=== PATIENT | female | born 1955 | race African-American/Black ===

== ENCOUNTER → 2018-04-28 | Outpatient (CLI) | payer OTHER ==
[~2018-04-28] MED LIST: RT-ALBUTEROL SULF 2.5 MG/3 ML PRE-MIX VIAL INH ONE; RT-ALBUTEROL SULF 2.5 MG/3 ML PRE-MIX VIAL ONE
== END ==
LOC: RT 13:22
PROVIDERS: ATTEND Neuromusculoskeletal Medicine, Sports Medicine
DX: Z02.71 Encounter for disability determination (principal)
CPT/HCPCS: 94060

== ENCOUNTER 2020-01-30 14:48 | Emergency (ER) | payer MEDICAID, OTHER ==
[~2020-01-30] VITALS: Ht 162.6 cm; Wt 142.8 kg
--- NOTE | 2020-01-30 14:54 | ED Cough/URI ---
General Chief Complaint: Coughing Up Blood Stated Complaint: SOB - PT HAS COPD History of Present Illness Date Seen by Provider: Jan 30, 2020 Time Seen by Provider: 14:54 Initial Comments 65-year-old female presents with cough, shortness of breath and wheezy. Patient has a history of COPD. She reports she has COPD because she "continues to smoke" patient has green sputum with increasing cough. She has no fevers or chills. She reports the symptoms started worsening about 4 days ago. She has a little bit of reddish tinged occasionally to her sputum but no gross bleeding. Patient denies any chest pain. Patient reports she has inhalers that she uses about every 6-8 hours. She denies any nausea vomiting or other systemic complaints Allergies and Home Medications Allergies Coded Allergies: No Known Drug Allergies (Unverified , 04/28/18) Home Medications Azithromycin 250 Mg Tablet, 250 MG PO UD TAKE 2 TABLETS ON DAY ONE THEN TAKE 1 TABLET DAILY FOR FOUR MORE DAYS Prescribed by: AVERY MERCEDES on 01/30/20 1603 Prednisone 20 Mg Tab, 40 MG PO DAILY Prescribed by: AVERY MERCEDES on 01/30/20 1603 Patient Home Medication List Home Medication List Reviewed: Yes Review of Systems Review of Systems Constitutional: No chills, No fever, No malaise Respiratory: cough, short of breath, wheezing Cardiovascular: No chest pain, No palpitations Gastrointestinal: No abdominal pain, No nausea, No vomiting Genitourinary: no symptoms reported Musculoskeletal: no symptoms reported Skin: no symptoms reported Psychiatric/Neurological: No Symptoms Reported Hematologic/Lymphatic: No Symptoms Reported Past Zmmefln-Gdebff-Pilkpj Hx Past Med/Social Hx: Reviewed Nursing Past Med/Soc Hx Physical Exam Vital Signs - First Documented 01/30/20 14:51 Temp 36.3 Pulse 111 Resp 24 B/P (MAP) 157/93 (114) Pulse Ox 91 O2 Delivery Room Air Capillary Refill : Height: '" Weight: lbs. oz. kg; BMI Method: General Appearance: no apparent distress Neck: full range of motion Respiratory: no respiratory distress, decreased breath sounds (mild diffuse); No accessory muscle use Cardiovascular: normal peripheral pulses, regular rate, rhythm Gastrointestinal: non tender, soft Extremities: normal range of motion, non-tender Neurologic/Psychiatric: alert, normal mood/affect, oriented x 3 Skin: normal color, warm/dry Progress/Results/Core Measures Suspected Sepsis SIRS Temperature: Pulse: Respiratory Rate: Laboratory Tests 01/30/20 15:15: White Blood Count 6.4 Blood Pressure / Mean: Laboratory Tests 01/30/20 15:15: Creatinine 0.57L, Platelet Count 349 Results/Orders Lab Results Laboratory Tests Test 01/30/20 15:15 Range/Units White Blood Count 6.4 4.3-11.0 10^3/uL Red Blood Count 4.46 4.35-5.85 10^6/uL Hemoglobin 14.9 11.5-16.0 G/DL Hematocrit 44 35-52 % Mean Corpuscular Volume 98 80-99 FL Mean Corpuscular Hemoglobin 33 25-34 PG Mean Corpuscular Hemoglobin Concent 34 32-36 G/DL Red Cell Distribution Width 12.7 10.0-14.5 % Platelet Count 349 130-400 10^3/uL Mean Platelet Volume 8.5 7.4-10.4 FL Sodium Level 138 135-145 MMOL/L Potassium Level 3.3 L 3.6-5.0 MMOL/L Chloride Level 97 L 98-107 MMOL/L Carbon Dioxide Level 28 21-32 MMOL/L Anion Gap 13 5-14 MMOL/L Blood Urea Nitrogen 8 7-18 MG/DL Creatinine 0.57 L 0.60-1.30 MG/DL Estimat Glomerular Filtration Rate > 60 BUN/Creatinine Ratio 14 Glucose Level 112 H 70-105 MG/DL Calcium Level 9.8 8.5-10.1 MG/DL My Orders Orders - MERCEDES,AVERY L DO Albuterol/Ipra Inhalation Soln (Duoneb I (01/30/20 15:00) Methylprednisolone Sod Succ (Solu-Medrol (01/30/20 14:57) Svn Small Volume Nebulizer (01/30/20 14:57) Chest Pa/Lat (2 View) (01/30/20 14:57) Basic Metabolic Panel (01/30/20 14:57) Cbc No Diff (01/30/20 14:57) Magnesium 1 Gm/100 Ml Ivpb (Magnesium Barajas (01/30/20 15:00) Ed Iv/Invasive Line Start (01/30/20 15:19) Albuterol/Ipra Inhalation Soln (Duoneb I (01/30/20 16:15) Svn Small Volume Nebulizer (01/30/20 16:04) Medications Given in ED Current Medications Medications Dose Ordered Sig/Marium Route Start Time Stop Time Status Last Admin Dose Admin Albuterol/ Ipratropium 3 ml ONCE ONCE INH 01/30/20 15:00 01/30/20 15:01 DC 01/30/20 15:18 3 ML Albuterol/ Ipratropium 3 ml ONCE ONCE INH 01/30/20 16:15 01/30/20 16:16 DC 01/30/20 16:08 3 ML Vital Signs/I&O 01/30/20 01/30/20 14:51 15:00 Temp 36.3 Pulse 111 Resp 24 B/P (MAP) 157/93 (114) Pulse Ox 91 O2 Delivery Room Air Room Air Capillary Refill : Progress Note : Time: 15:58 Progress Note Patient reports she is feeling 100% better following treatment. She is ready be discharged home. Patient with a COPD exacerbation. I will discharge her with some prednisone and azithromycin. She is discharged home in stable condition. Patient normally wears 2 L oxygen at home. Here on room air she was running approximate 92-95% Diagnostic Imaging Diagonstic Imaging: Xray Comments [facility], [place] NAME: CAREN LEE MED REC#: [id number] PT STATUS: REG ER : 1955 PHYSICIAN: AVERY MERCEDES DO ADMIT DATE: 01/30/20/ER FS Signed Date of Exam:01/30/20 CHEST PA/LAT (2 VIEW) HISTORY: Cough 1 week with sputum production. Shortness of breath. COMPARISON: None. TECHNIQUE: Two views of the chest. FINDINGS: There are multifocal airspace opacities, most in the peripheral upper lobes. No pleural effusion or pneumothorax is seen. The cardiac silhouette is normal in size. There are degenerative changes in the shoulders and spine. IMPRESSION: Airspace opacities in the upper lobes concerning for pneumonia. Reviewed: Reviewed by Me, Reviewed/Discussed Departure Impression Primary Impression: COPD with acute exacerbation Disposition: HOME, SELF-CARE Condition: Stable Departure-Patient Inst. Referrals: NO,LOCAL PHYSICIAN (PCP/Family) Primary Care Physician Patient Instructions: Exacerbation of COPD, Risk Factors for COPD Add. Discharge Instructions: Follow-up with your primary care provider in 3-4 days for recheck in today symptoms All discharge instructions reviewed with patient and/or family. Voiced understanding. Scripts Prednisone (Prednisone) 20 Mg Tab 40 MG PO DAILY, #6 TAB 0 Refills Prov: AVERY MERCEDES DO 01/30/20 Azithromycin (Azithromycin) 250 Mg Tablet 250 MG PO UD, #6 TAB TAKE 2 TABLETS ON DAY ONE THEN TAKE 1 TABLET DAILY FOR FOUR MORE DAYS Prov: AVERY MERCEDES DO 01/30/20 AVERY MERCEDES DO Jan 30, 2020 14:54
[2020-01-30] MEDS ORDERED: methylPREDNISolone 125 MG (Solu-MEDROL) VIAL IV STA (14:57)
[2020-01-30] MEDS ORDERED: RT-ALBUTEROL/IPRATROPIUM 3 ML (DUONEB) VIAL INH ONE ×2 (15:00→16:15)
[2020-01-30] MEDS: MAGNESIUM 1 GM/100 ML IVPB 100 ML IV SCH ×2 (15:18→16:08)
[2020-01-30 15:26] LABS: HEMOGLOBIN 14.9 G/DL (11.5-16.0); MEAN PLATELET VOLUME 8.5 FL (7.4-10.4); RED CELL DISTRIBUTION WIDTH 12.7 % (10.0-14.5); WHITE BLOOD COUNT 6.4 10^3/uL (4.3-11.0)
[2020-01-30 15:41] LABS: CARBON DIOXIDE 28 MMOL/L (21-32); CHLORIDE 97 MMOL/L (98-107); POTASSIUM 3.3 MMOL/L (3.6-5.0); SODIUM 138 MMOL/L (135-145)
[2020-01-30 15:42] LABS: BUN/CREATININE RATIO 14; CALCIUM 9.8 MG/DL (8.5-10.1); CREATININE SERUM 0.57 MG/DL (0.60-1.30); GFR ESTIMATED > 60; GLUCOSE 112 MG/DL (70-105)
--- NOTE | 2020-01-30 16:02 | Diagnostic Imaging Report ---
HISTORY: Cough 1 week with sputum production. Shortness of breath. COMPARISON: None. TECHNIQUE: Two views of the chest. FINDINGS: There are multifocal airspace opacities, most in the peripheral upper lobes. No pleural effusion or pneumothorax is seen. The cardiac silhouette is normal in size. There are degenerative changes in the shoulders and spine. IMPRESSION: Airspace opacities in the upper lobes concerning for pneumonia. Dictated by: Dictated on workstation # [id number]
[2020-01-30] MEDS ORDERED: AZIT250T12 PO (16:03)
[2020-01-30] MEDS ORDERED: PRD20T PO (16:03)
[2020-01-30 16:30] VITALS: BP 146/85
== END 2020-01-30 16:30 | disposition home or self-care (01) ==
LOC: EDUNIT# 14:48 → ER FS 14:50
DX: J44.1 Chronic obstructive pulmonary disease with (acute) exacerbation (principal); Z79.52 Long term (current) use of systemic steroids
CPT/HCPCS: 36415; 71046; 80048; 85027

== ENCOUNTER 2020-02-03 00:49 | Inpatient (IN) | payer MEDICAID ==
[2020-02-03] VITALS (30 sets, daily range): BP systolic 142–191; BP diastolic 68–129
[~2020-02-03] VITALS: Ht 162.6 cm; Wt 142.4 kg
[~2020-02-03 00:49] MED LIST changes: +AZIT250T12 PO; +PRD20T PO; -RT-ALBUTEROL SULF 2.5 MG/3 ML PRE-MIX VIAL INH ONE; -RT-ALBUTEROL SULF 2.5 MG/3 ML PRE-MIX VIAL ONE
--- NOTE | 2020-02-03 01:04 | ED Respiratory ---
General Chief Complaint: Respiratory Problems Stated Complaint: RESP DISTRESS Source: patient, EMS Exam Limitations: no limitations History of Present Illness Date Seen by Provider: Feb 03, 2020 Time Seen by Provider: 00:55 Initial Comments The patient is a morbidly obese 65-year-old female who presents via EMS for evaluation of shortness of breath. She has a known history of COPD and states that she was here in the emergency department on Saturday, 3 days ago, for the same complaint. She states that her symptoms are typical of her COPD exacerbations and she denies any fevers or chills. She states she lives with her son and that he has not had any fevers or chills. She is alert and oriented 4, calm, and appears to be in no distress. The patient is on 2L/min continuous nasal cannula oxygen at home and has been using her home nebulizer for breathing treatments with some relief. She denies chest pain, loss of taste or smell, abdominal or back pain, hemoptysis, palpitations, diaphoresis, nausea or vomiting, dizziness or syncope. When she was seen here over the weekend she was prescribed prednisone and azithromycin but states that they do not seem to be helping. The patient does continue to smoke cigarettes. Timing/Duration: other (4-5 days) Severity: moderate Modifying Factors: Improves With Albuterol Nebulizer (helps somewhat) Associated Symptoms: cough, shortness of breath, wheezing Allergies and Home Medications Allergies Coded Allergies: No Known Drug Allergies (Unverified , 04/28/18) Home Medications Azithromycin 250 Mg Tablet, 250 MG PO UD TAKE 2 TABLETS ON DAY ONE THEN TAKE 1 TABLET DAILY FOR FOUR MORE DAYS Prescribed by: AVERY MERCEDES on 01/30/20 1603 Prednisone 20 Mg Tab, 40 MG PO DAILY Prescribed by: AVERY MERCEDES on 01/30/20 1603 Patient Home Medication List Home Medication List Reviewed: Yes Review of Systems Review of Systems Constitutional: no symptoms reported EENTM: no symptoms reported Respiratory: cough, short of breath, wheezing Cardiovascular: no symptoms reported Gastrointestinal: no symptoms reported Genitourinary: no symptoms reported Musculoskeletal: no symptoms reported Skin: no symptoms reported Psychiatric/Neurological: No Symptoms Reported Hematologic/Lymphatic: No Symptoms Reported Immunological/Allergic: no symptoms reported All Other Systems Reviewed Negative Unless Noted: Yes Past Xyyxllz-Rwbgkm-Gexmri Hx Past Med/Social Hx: Reviewed Nursing Past Med/Soc Hx Patient Social History Alcohol Beverage of Choice: Whiskey Type Used: Cigarettes 2nd Hand Smoke Exposure: No Recent Foreign Travel: No Contact w/Someone Who Travel: No Recent Hopitalizations: No Seasonal Allergies Seasonal Allergies: No Past Medical History Surgeries: Yes Section, Gallbladder, Tonsillectomy, Tubal Ligation Respiratory: Yes COPD Cardiac: Yes Hypertension Neurological: No Genitourinary: No Gastrointestinal: No Musculoskeletal: No Endocrine: No HEENT: No Cancer: No Psychosocial: No Integumentary: No Physical Exam Vital Signs - First Documented 02/03/20 01:25 Temp 36.7 Pulse 77 Resp 20 B/P (MAP) 165/81 (109) Pulse Ox 93 O2 Delivery Nasal Cannula O2 Flow Rate 4.00 Capillary Refill : Height: '" Weight: lbs. oz. 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, alert, normal mood/affect, oriented x 3 Skin: normal color, warm/dry Focused Exam Lactate Level 02/03/20 01:10: Lactic Acid Level 1.08 Lactic Acid Level Laboratory Tests Test 02/03/20 01:10 Lactic Acid Level 1.08 MMOL/L (0.50-2.00) Progress/Results/Core Measures Suspected Sepsis SIRS Temperature: Pulse: Respiratory Rate: Laboratory Tests 02/03/20 01:00: White Blood Count 7.8 Blood Pressure / Mean: 02/03/20 01:10: Lactic Acid Level 1.08 Laboratory Tests 02/03/20 01:00: Creatinine 0.61, Platelet Count 339, Total Bilirubin 0.3 Results/Orders Lab Results Laboratory Tests Test 02/03/20 01:00 02/03/20 01:10 Range/Units White Blood Count 7.8 4.3-11.0 10^3/uL Red Blood Count 4.30 L 4.35-5.85 10^6/uL Hemoglobin 14.5 11.5-16.0 G/DL Hematocrit 44 35-52 % Mean Corpuscular Volume 102 H 80-99 FL Mean Corpuscular Hemoglobin 34 25-34 PG Mean Corpuscular Hemoglobin Concent 33 32-36 G/DL Red Cell Distribution Width 13.0 10.0-14.5 % Platelet Count 339 130-400 10^3/uL Mean Platelet Volume 8.6 7.4-10.4 FL Neutrophils (%) (Auto) 68 42-75 % Lymphocytes (%) (Auto) 25 12-44 % Monocytes (%) (Auto) 7 0-12 % Eosinophils (%) (Auto) 0 0-10 % Basophils (%) (Auto) 0 0-10 % Neutrophils # (Auto) 5.3 1.8-7.8 X 10^3 Lymphocytes # (Auto) 1.9 1.0-4.0 X 10^3 Monocytes # (Auto) 0.6 0.0-1.0 X 10^3 Eosinophils # (Auto) 0.0 0.0-0.3 10^3/uL Basophils # (Auto) 0.0 0.0-0.1 10^3/uL Sodium Level 139 135-145 MMOL/L Potassium Level 3.2 L 3.6-5.0 MMOL/L Chloride Level 97 L 98-107 MMOL/L Carbon Dioxide Level 36 H 21-32 MMOL/L Anion Gap 6 5-14 MMOL/L Blood Urea Nitrogen 18 7-18 MG/DL Creatinine 0.61 0.60-1.30 MG/DL Estimat Glomerular Filtration Rate > 60 BUN/Creatinine Ratio 30 Glucose Level 141 H 70-105 MG/DL Calcium Level 9.9 8.5-10.1 MG/DL Corrected Calcium 10.3 H 8.5-10.1 MG/DL Total Bilirubin 0.3 0.1-1.0 MG/DL Aspartate Amino Transf (AST/SGOT) 52 H 5-34 U/L Alanine Aminotransferase (ALT/SGPT) 35 0-55 U/L Alkaline Phosphatase 69 40-136 U/L Pro-B-Type Natriuretic Peptide 617.5 H <75.0 PG/ML Total Protein 6.5 6.4-8.2 GM/DL Albumin 3.5 3.2-4.5 GM/DL Blood Gas Puncture Site RT RADIAL Blood Gas Patient Temperature UNK Arterial Blood pH 7.31 *L 7.37-7.43 Arterial Blood Partial Pressure CO2 89 *H 35-45 MMHG Arterial Blood Partial Pressure O2 58 L 79-93 MMHG Arterial Blood HCO3 45 *H 23-27 MMOL/L Arterial Blood Total CO2 48.0 H 21.0-31.0 MMOL/L Arterial Blood Oxygen Saturation 87 L 94-100 % Arterial Blood Base Excess 14.6 H -2.5-2.5 MMOL/L Arnie Test YES-POS Blood Gas Ventilator Setting NO Blood Gas Inspired Oxygen 5 L Lactic Acid Level 1.08 0.50-2.00 MMOL/L My Orders Orders - PORTER IRVIN DO Arterial Blood Gas (02/03/20 00:50) Cbc With Automated Diff (02/03/20 00:50) Comprehensive Metabolic Panel (02/03/20 00:50) Blood Culture (02/03/20 00:50) Probnp Fs (02/03/20 00:50) Lactic Acid Analyzer (02/03/20 00:50) Income Auditor (02/03/20 00:50) Ekg Tracing (02/03/20 00:50) Chest 1 View Ap/Pa Only (02/03/20 00:57) Coronavirus Sars-Cov-2 So 2018 (02/03/20 01:04) Albuterol/Ipra Inhalation Soln (Duoneb I (02/03/20 01:15) Svn Small Volume Nebulizer (02/03/20 01:04) Methylprednisolone Sod Succ (Solu-Medrol (02/03/20 01:15) Bipap (Bilevel) Set Up (02/03/20 01:34) Potassium Chloride (Tablet) (K Dur Table (02/03/20 02:00) Medications Given in ED Current Medications Medications Dose Ordered Sig/Marium Route Start Time Stop Time Status Last Admin Dose Admin Albuterol/ Ipratropium 3 ml ONCE ONCE INH 02/03/20 01:15 02/03/20 01:16 DC 02/03/20 01:22 3 ML Methylprednisolone Sodium Succinate 125 mg ONCE ONCE IVP 02/03/20 01:15 02/03/20 01:16 DC 02/03/20 01:22 125 MG Vital Signs/I&O 02/03/20 02/03/20 01:25 01:47 Temp 36.7 Pulse 77 67 Resp 20 16 B/P (MAP) 165/81 (109) Pulse Ox 93 100 O2 Delivery Nasal Cannula O2 Flow Rate 4.00 100.00 Capillary Refill : Progress Note : Progress Note @0154 - patient updated on lab and imaging results. She is now on BiPAP. She is agreeable to admission. Dr. Hall excepts the admission at [facility] to the ICU and is agreeable to a pulmonology consultation. No indication for intubation at this time and given the compensated nature of the patient's ABG I suspect this will not be necessary during her admission. COVID test is pending. ECG Comment EKG@0110 - normal sinus rhythm, rate of 69, normal axis, no acute ischemic findings noted, no STEMI, reviewed and interpreted by myself Critical Care Note Critical Care Start Time: 01:10 Stop Time: 01:50 Total Time (minutes) 40 Progress Interpretation of lab and imaging results, discussion with admitting physician, review of previous medical records, prevention of respiratory failure, BiPAP, repeat examinations, evaluating response to treatment Departure Communication (Admissions) Time/Spoke to Admitting Phy: 01:54 Dr. Hall accepts the ICU admission at [facility] Impression Primary Impression: Acute exacerbation of chronic obstructive pulmonary disease (COPD) Additional Impressions: Hyperkalemia Hypercapnia Disposition: ADMITTED INPATIENT Condition: Critical Admissions Decision to Admit Reason: Admit from ER (General) Decision to Admit/Date: Feb 03, 2020 Time/Decision to Admit Time: 01:54 Departure-Patient Inst. Referrals: KEVYN MOSER MD (PCP/Family) Primary Care Physician PORTER IRVIN DO Feb 03, 2020 01:04
--- NOTE | 2020-02-03 01:08 | NUR ---
Call from Dgt Magda Jorgensen wanting an update. Radha RN is primary nurse and with patient providing care. Dgt reassured pt is doing ok and talking to staffand is calming down in ER with reassurance that is helping her not to hyperventilate with fear. Work up started with xrays, labs, etc and Dr in room and it will be 1 1/2 hrs till results or plan probably. Phone number obtained. [phone]. Fantasma lives in [place].
[2020-02-03] MEDS ORDERED: RT-ALBUTEROL/IPRATROPIUM 3 ML (DUONEB) VIAL INH ONE (01:15)
[2020-02-03] MEDS ORDERED: methylPREDNISolone 125 MG (Solu-MEDROL) VIAL IVP ONE (01:15)
--- NOTE | 2020-02-03 01:15 | NUR ---
Call from Pt's sister Val Akins that is parked in visitor parking lot. Pt had called her tonight about her breathing difficulties. Permission to speak with family member obtained. Brief update given same as dgt's. Val wishes to remain outside with her concerns and wishes to remain updated by staff. Val's number [phone].
[2020-02-03 01:31] LABS: BASOPHILS % (AUTO) 0 % (0-10); EOSINOPHILS % (AUTO) 0 % (0-10); HEMATOCRIT 44 % (35-52); HEMOGLOBIN 14.5 G/DL (11.5-16.0); LYMPHOCYTES % (AUTO) 25 % (12-44); MEAN CORPUSCULAR HEMOGLOBIN 34 PG (25-34); MEAN CORPUSCULAR HGB CONC 33 G/DL (32-36); MEAN CORPUSCULAR VOLUME 102 FL (80-99); MEAN PLATELET VOLUME 8.6 FL (7.4-10.4); MONOCYTES % (AUTO) 7 % (0-12); NEUTROPHILS % (AUTO) 68 % (42-75); PLATELET COUNT 339 10^3/uL (130-400); WHITE BLOOD COUNT 7.8 10^3/uL (4.3-11.0)
[2020-02-03 01:32] LABS: LYMPHOCYTES # (AUTO) 1.9 X 10^3 (1.0-4.0); MONOCYTES # (AUTO) 0.6 X 10^3 (0.0-1.0); NEUTROPHILS # (AUTO) 5.3 X 10^3 (1.8-7.8)
[2020-02-03 01:34] LABS: ABG PCO2 89 MMHG (35-45); ABG PH 7.31 (7.37-7.43); ABG PO2 58 MMHG (79-93)
[2020-02-03 01:35] LABS: ABG BASE EXCESS 14.6 MMOL/L (-2.5-2.5); ABG OXYGEN SATURATION 87 % (94-100); ALLENS TEST YES-POS; INSPIRED O2 5 L; VENTILATOR NO
[2020-02-03 01:41] LABS: ALANINE AMINOTRANSFERASE 35 U/L (0-55); ALBUMIN 3.5 GM/DL (3.2-4.5); ALKALINE PHOSPHATASE 69 U/L (40-136); BILIRUBIN,TOTAL 0.3 MG/DL (0.1-1.0); BUN/CREATININE RATIO 30; CALCIUM 9.9 MG/DL (8.5-10.1); CREATININE SERUM 0.61 MG/DL (0.60-1.30); GFR ESTIMATED > 60; GLUCOSE 141 MG/DL (70-105); TOTAL PROTEIN 6.5 GM/DL (6.4-8.2)
[2020-02-03 01:46] LABS: CARBON DIOXIDE 36 MMOL/L (21-32); CHLORIDE 97 MMOL/L (98-107); POTASSIUM 3.2 MMOL/L (3.6-5.0); SODIUM 139 MMOL/L (135-145)
[2020-02-03] MEDS ORDERED: KCL 20 MEQ TAB (K-DUR) PO ONE (02:00)
--- NOTE | 2020-02-03 02:30 | NUR ---
ems here report and care given.
[2020-02-03] MEDS ORDERED: RT-ALBUTEROL/IPRATROPIUM 3 ML (DUONEB) VIAL ONE ×2 (04:55→06:40)
[2020-02-03] MEDS ORDERED: FUROSEMIDE 40 MG/4 ML INJ (LASIX) IVP ONE (05:30)
[2020-02-03] MEDS ORDERED: POTASSIUM CL 10MEQ/50ML IVPB 50 ML IV SCH (05:30)
--- NOTE | 2020-02-03 05:31 | Pulmonary Consultation ---
History of Present Illness History of Present Illness Date Seen by Provider: Feb 03, 2020 Time Seen by Provider: 05:26 Date of Admission Allergies and Home Medications Allergies Coded Allergies: No Known Drug Allergies (Unverified , 04/28/18) Home Medications Azithromycin 250 Mg Tablet, 250 MG PO UD TAKE 2 TABLETS ON DAY ONE THEN TAKE 1 TABLET DAILY FOR FOUR MORE DAYS Prescribed by: AVERY MERCEDES on 01/30/20 1603 Prednisone 20 Mg Tab, 40 MG PO DAILY Prescribed by: AVERY MERCEDES on 01/30/20 1603 Past Xalubio-Usjwhq-Xdbysl Hx Past Med/Social Hx: Reviewed Nursing Past Med/Soc Hx Patient Social History Alcohol Use: Denies Use Number of Drinks Today: GG Alcohol Beverage of Choice: Whiskey Recreational Drug Use: No Smoking Status: Current Everyday Smoker Type Used: Cigarettes 2nd Hand Smoke Exposure: No Recent Foreign Travel: No Contact w/Someone Who Travel: No Recent Infectious Disease Expo: No Recent Hopitalizations: No Physical Abuse: No Sexual Abuse: No Mistreated: No Fear: No Immunizations Up To Date Date of Pneumonia Vaccine: October 08, 2018 Seasonal Allergies Seasonal Allergies: No Past Medical History Surgeries: Yes Section, Gallbladder, Tonsillectomy, Tubal Ligation Respiratory: Yes COPD Cardiac: Yes Hypertension Neurological: No Genitourinary: No Gastrointestinal: No Musculoskeletal: No Endocrine: No HEENT: No Cancer: No Psychosocial: No Integumentary: No Review of Systems Time Seen by Provider: 05:36 Sepsis Event Evaluation Height, Weight, BMI Height: '" Weight: lbs. oz. kg; 54.00 BMI Method: Exam Exam Vital Signs Date Time Temp Pulse Resp B/P (MAP) Pulse Ox O2 Delivery O2 Flow Rate FiO2 02/03/20 05:07 98 Nasal Cannula 6.00 02/03/20 04:19 Nasal Cannula 5.00 02/03/20 04:00 95 Nasal Cannula 5.00 02/03/20 04:00 69 182/97 (125) 95 Nasal Cannula 5.00 02/03/20 03:45 71 18 148/106 (120) 94 Nasal Cannula 5.00 02/03/20 03:38 70 25 174/116 (135) 94 Nasal Cannula 5.00 02/03/20 03:30 69 21 173/105 (127) 95 Nasal Cannula 5.00 02/03/20 03:18 36.3 71 32 191/129 (149) 94 Nasal Cannula 5.00 02/03/20 03:16 71 02/03/20 02:30 60 16 167/88 100 NIV Bilevel 02/03/20 01:47 67 16 100 100.00 02/03/20 01:25 36.7 77 20 165/81 (109) 93 Nasal Cannula 4.00 Height & Weight Height: '" Weight: lbs. oz. kg; 54.00 BMI Method: Capillary Refill: Less Than 3 Seconds Gastrointestinal: normal bowel sounds, non tender, soft Results Lab Laboratory Tests 02/03/20 01:00 Assessment/Plan Assessment/Plan Acute on chronic respiratory failure -Currently on NC -Change to BiPAP secondary to ABG results COPDAE Hypokalemia -Replace ANICETO CORDOVA DO Feb 03, 2020 05:31
[2020-02-03] MEDS: MAGNESIUM 1 GM/100 ML IVPB 100 ML IV SCH (05:59)
[2020-02-03] MEDS: KCL 20 MEQ TAB (K-DUR) PO SCH (05:59)
[2020-02-03] MEDS: POTASSIUM CL 10MEQ/50ML IVPB 50 ML IV SCH (05:59)
[2020-02-03 06:20] LABS: BASOPHILS % (AUTO) 0 % (0-10); EOSINOPHILS % (AUTO) 0 % (0-10); HEMATOCRIT 46 % (35-52); HEMOGLOBIN 14.9 G/DL (11.5-16.0); LYMPHOCYTES # (AUTO) 0.8 X 10^3 (1.0-4.0); LYMPHOCYTES % (AUTO) 9 % (12-44); MEAN CORPUSCULAR HEMOGLOBIN 33 PG (25-34); MEAN CORPUSCULAR HGB CONC 32 G/DL (32-36); MEAN CORPUSCULAR VOLUME 103 FL (80-99); MEAN PLATELET VOLUME 8.8 FL (7.4-10.4); MONOCYTES # (AUTO) 0.2 X 10^3 (0.0-1.0); MONOCYTES % (AUTO) 2 % (0-12); NEUTROPHILS # (AUTO) 8.2 X 10^3 (1.8-7.8); NEUTROPHILS % (AUTO) 89 % (42-75); PLATELET COUNT 335 10^3/uL (130-400); RED CELL DISTRIBUTION WIDTH 13.1 % (10.0-14.5); WHITE BLOOD COUNT 9.2 10^3/uL (4.3-11.0)
[2020-02-03] MEDS ORDERED: ACETAMINOPHEN 325 MG TABLET ONE (06:21)
[2020-02-03] MEDS: ACETAMINOPHEN 325 MG TABLET PO PRN ×3 (06:26→23:57)
[2020-02-03] MEDS: hydrALAZINE (APESOLINE) 20 MG/ML VIAL IV SCH ×3 (06:28→18:00)
[2020-02-03 06:35] LABS: ALANINE AMINOTRANSFERASE 46 U/L (0-55); ALBUMIN 3.8 GM/DL (3.2-4.5); ALKALINE PHOSPHATASE 80 U/L (40-136); BILIRUBIN,TOTAL 0.4 MG/DL (0.1-1.0); BUN/CREATININE RATIO 26; CARBON DIOXIDE 32 MMOL/L (21-32); CHLORIDE 97 MMOL/L (98-107); GFR ESTIMATED > 60; GLUCOSE 147 MG/DL (70-105); MAGNESIUM 1.5 MG/DL (1.6-2.4); PHOSPHORUS 4.1 MG/DL (2.3-4.7); POTASSIUM 4.1 MMOL/L (3.6-5.0); SODIUM 141 MMOL/L (135-145)
[2020-02-03] MEDS ORDERED: KCL 20 MEQ TAB (K-DUR) PO NR (07:00)
--- NOTE | 2020-02-03 07:12 | Diagnostic Imaging Report ---
INDICATION: Shortness of breath. Comparison with 01/30/2020. FINDINGS: There has been clearing of infiltrates within the lungs since previous exam. Both lungs are now well aerated and clear. Heart is not enlarged. No pneumothorax or pleural effusion. IMPRESSION: Negative portable chest Dictated by: Dictated on workstation # [id number]
[2020-02-03] MEDS: ENOXAPARIN 60 MG/0.6 ML (LOVENOX) SYR SC SCH ×2 (08:58→20:18)
[2020-02-03] MEDS: PANTOPRAZOLE 40 MG (PROTONIX) VIAL IV SCH (08:58)
--- NOTE | 2020-02-03 09:17 | History & Physical-Hospitalist ---
History of Present Illness HPI/Chief Complaint Pt is a 65yoAAF with a PMH of HTN and COPD who presented to the ER due to shortness of breath. She was seen in the ER two days ago due to SOB and was prescribed a z-pack and steroids but despite this she did not improve. She continued to use her nebulizer more too without relief. She returned to the ER last night due to worsening symptoms and was admitted to the ICU due to acute hypoxic respiratory failure. She was placed on BiPAP this morning and states she is feeling much better and breathing easier. Source: patient Exam Limitations: clinical condition Date Seen 02/03/20 Time Seen by a Provider: 07:45 Attending Physician Amna Hall MD PCP Erin Morales MD Referring Physician Date of Admission Feb 03, 2020 at 03:04 Home Medications & Allergies Home Medications Reviewed patient Home Medication Reconciliation performed by pharmacy medication reconciliations fire control technician g and/or nursing. Patients Allergies have been reviewed. Allergies Allergies Coded Allergies No Known Drug Allergies (Wpgtyozarr65/19/18) Past Htdntur-Wyfipn-Ygtext Hx Past Med/Social Hx: Reviewed Nursing Past Med/Soc Hx Patient Social History Alcohol Use: Occasionally Uses Alcohol Beverage of Choice: Whiskey Recreational Drug Use: No Smoking Status: Current Everyday Smoker Type Used: Cigarettes 2nd Hand Smoke Exposure: No Recent Foreign Travel: No Contact w/other who traveled: No Recent Hopitalizations: No Recent Infectious Disease Expo: No Immunizations Up To Date Date of Pneumonia Vaccine: October 08, 2018 Seasonal Allergies Seasonal Allergies: No Past Medical History Surgeries: Section, Gallbladder, Tonsillectomy, Tubal Ligation Cardiac: Hypertension Family History Reviewed Nursing Family Hx No Pertinent Family Hx Review of Systems ROS-Unable to Obtain: limited by BiPAP Constitutional: No chills, No fever EENTM: no symptoms reported Respiratory: see HPI, cough, short of breath Cardiovascular: No chest pain Gastrointestinal: no symptoms reported Physical Exam Physical Exam Vital Signs Vital Signs - First Documented 02/03/20 01:25 Temp 36.7 Pulse 77 Resp 20 B/P (MAP) 165/81 (109) Pulse Ox 93 O2 Delivery Nasal Cannula O2 Flow Rate 4.00 Capillary Refill : Less Than 3 Seconds Height, Weight, BMI Height: '" Weight: lbs. oz. kg; 54.00 BMI Method: General Appearance: Chronically ill, Obese, Other (breathing comfortably on BiPAP) HEENT: PERRL/EOMI, Other (obscurred by BiPAP) Respiratory: No Accessory Muscle Use; No Rhonci; Wheezing, Other (on BiPAP) Cardiovascular: Regular Rate, Rhythm, No Murmur, Normal Peripheral Pulses Gastrointestinal: Normal Bowel Sounds, Non Tender, Soft Genital/Rectal: Other (rizo in place) Extremity: No Calf Tenderness, No Pedal Edema Neurologic/Psychiatric: Alert, Oriented x3, Normal Mood/Affect Skin: Normal Color, Warm/Dry Results Results/Procedures Labs Laboratory Tests 02/03/20 01:00 02/03/20 05:48 Patient resulted labs reviewed. Imaging [facility] [place], [place] NAME: CAREN LEE MED REC#: [id number] PT STATUS: ADM IN : 1955 PHYSICIAN: PORTER IRVIN DO ADMIT DATE: 02/03/20/ICU Signed Date of Exam:02/03/20 CHEST 1 VIEW AP/PA ONLY INDICATION: Shortness of breath. Comparison with 01/30/2020. FINDINGS: There has been clearing of infiltrates within the lungs since previous exam. Both lungs are now well aerated and clear. Heart is not enlarged. No pneumothorax or pleural effusion. IMPRESSION: Negative portable chest Dictated by: Dictated on workstation # [id number] Dict: 02/03/20 0709 Trans: 02/03/20 1129 DANIELLE [id number] Interpreted by: TARIQ PATEL MD Electronically signed by: TARIQ PATEL MD 02/03/20 1129 Assessment/Plan Admission Diagnosis Acute Hypoxic Respiratory Failure Admission Status: Inpatient Order (span 2 midnights) Reason for Inpatient Admission: failed outpatient management Assessment and Plan Acute on Chronic Hypoxic Respiratory Failure Acute Exacerbation of COPD COVID PUI Continue BiPAP Pulm consulted, appreciate recs Solu-Medrol MAT protocol COVID pending Start Advair HTN Continue home meds DVT ppx: Lovenox Critical Care Critically Ill Patient Diagnosis/Problems Diagnosis/Problems (1) Essential (primary) hypertension Status: Chronic (2) Tobacco abuse Status: Chronic (3) Morbid obesity with BMI of 50.0-59.9, adult Status: Chronic (4) Hypomagnesemia Status: Acute (5) Acute respiratory failure Status: Acute Qualifiers: Respiratory failure complication: hypoxia and hypercapnia Qualified Codes: J96.01 - Acute respiratory failure with hypoxia; J96.02 - Acute respiratory failure with hypercapnia (6) COPD (chronic obstructive pulmonary disease) Status: Acute Qualifiers: COPD type: COPD with acute exacerbation Qualified Codes: J44.1 - Chronic obstructive pulmonary disease with (acute) exacerbation (7) Person under investigation for severe acute respiratory syndrome coronavirus 2 (SARS-CoV-2) infection Status: Acute Clinical Quality Measures DVT/VTE Risk/Contraindication: Risk Factor Score Per Nursin RFS Level Per Nursing on Admit: 4+=Very High NOHEMY DUNAWAY MD Feb 03, 2020 09:17
[2020-02-03] MEDS: RT-ALBUTEROL INHALER HFA (VENTOLIN HFA) 18 GM IH SCH ×4 (09:43→22:13)
[2020-02-03 09:47] LABS: ABG BASE EXCESS 15.7 MMOL/L (-2.5-2.5); ABG OXYGEN SATURATION 91 % (94-100); ABG PCO2 66 MMHG (35-45); ABG PH 7.41 (7.37-7.43); ABG PO2 58 MMHG (79-93); ABG TCO2 43.5 MMOL/L (21.0-31.0)
[2020-02-03 09:51] LABS: ALLENS TEST YES-POS; INSPIRED O2 28%; PATIENT TEMP 36; VENTILATOR NO
[2020-02-03] MEDS ORDERED: RT-ALBUINH IH (12:29)
[2020-02-03] MEDS ORDERED: LISI1TAB26 PO (12:29)
[2020-02-03] MEDS ORDERED: METO-333 PO (12:29)
[2020-02-03] MEDS ORDERED: ALB0.5V INH (12:29)
--- NOTE | 2020-02-03 12:48 | NUR ---
I WAS UNABLE TO SPEAK WITH THE PT DUE TO BI-PAP, WHEN DALJIT VALVERDE WAS IN HER ROOM LAST SHE MENTIONED SHE TAKES LISINOPRIL AND METOPROLOL. I REACHED OUT TO THE PATIENTS DAUGHTER SYLVIE TO GET INFORMATION ABOUT HER MEDS- UNFORTUNATELY SHE DIDNT KNOW ABOUT HER MOTHERS MEDICATIONS. I HAD [facility] SEND OVER AN ACTIVE MEDS LIST AND ALSO HAD [facility] FAX A LIST OVER. I ENTERED THE MED REC USING THIS INFORMATION. I KEPT THE ANTIBIOTIC ON THE MED REC SINCE THE THERAPY IS STILL CURRENT. THE FOLLOWING MEDICATIONS ARE FILLED FROM [facility]: 12-15-2019 PROAIR #1 01-30-2020 LISINOPRIL/HCTZ 20-25 #30/30DS 01-30-2020 ALBUTEROL SOLUTION #90 02-01-2020 METOPROLOL TART 25MG #60/30DS ON THE MED LIST FROM [facility] IT SAYS OXYBUTYNIN ER 5MG AND PROZAC 40MG ARE ACTIVE MEDS BUT NEITHER OF THESE HAS BEEN FILLED SINCE JUN 2019 FOR 30 DAY SUPPLIES. I LET THE NURSE KNOW ABOUT THESE AND SHE WAS ALREADY HEADED IN HER ROOM AND WAS GOING TO LET ME KNOW WHAT THE PT SAID(I ALSO ASKED THE NURSE TO CHECK ON ASPIRIN) WHENEVER THE NURSE LETS ME KNOW OR I AM ABLE TO GET MORE INFORMATION I WILL UPDATE THE MED REC/NOTES NEEDED Addendum: 02/04/20 at 1145 by KASEY ZACARIAS [facility] I WAS ABLE TO VISIT AND SPEAK WITH THE PT TODAY. PT LET ME KNOW SHE IS NOT CURRENTLY TAKING ASPIRIN EVEN THOUGH HER DR WANTED HER TO. WHEN I ASKED ABOUT FLUOXETINE 40MG AND LET HER KNOW THE LAST TIME THE PHARMACY FILLED IT (07-07-2019 #30) SHE ADMITTED SHE ISNT TAKING IT. DUE TO COST AND COVID PT WAS MORE CONCERNED ABOUT HER BLOOD PRESSURE MEDS AND BREATHING TREATMENTS. CAREN DENIED SEEING A PHYSICS INSTRUCTOR OR TAKING ANY SCHEDULED MEDICATIONS FOR COPD AND SHE IS INTERESTED IN STARTING VITAMINS OR A MULTIVITAMIN IF SUGGESTED.
[2020-02-03] MEDS ORDERED: RT-ALBUTEROL INHALER HFA (VENTOLIN HFA) 18 GM IH PRN (14:00)
[2020-02-03] MEDS ORDERED: hydrOXYzine (ATARAX) 10 MG TAB PO PRN (17:00)
[2020-02-03] MEDS ORDERED: FLUoxetine HCL 10 MG (PROzac) CAPSULE/TABLET PO SCH (17:00)
[2020-02-03] MEDS: methylPREDNISolone 40 MG/ML (Solu-MEDROL) VIAL IV SCH ×2 (17:07→23:59)
[2020-02-03] MEDS ORDERED: FLUoxetine HCL 20 MG (PROzac) CAP ONE (17:15)
--- NOTE | 2020-02-03 18:22 | NUR ---
LATE ENTRY: 1644 PT CALLED THIS RN INTO ROOM PT SITTING UP IN BED STATES " I'M ANXIOUS AND SOA" , PT NOTED TO BE IN THE 96-98% RANGE ON SA02, PT STATES " I TAKE MEDICINE AT HOME FOR ANXIETY." PT STATES SHE "TAKES 40 MG PROZAC", THIS RN STAYED WITH PT AND NOTIFIED DR DUNAWAY, NEW ORDERS RECEIVED. AFTER PT CALLED DOWN SHE WAS ABLE TO GET UP INTO RECLINER PER HER REQUEST. PT TOLERATED MOVING AND DIDN'T HAVE AN INCREASE IN OXYGEN DEMANDS. PT PLACED ON 4 LITERS PER NC DINNER WAS HERE AND PT STATED " I WANT TO TRY TO EAT", THIS RN CONTINUED TO STAY IN ROOM, GAVE PT A SPONGE BATH IN CHAIR AND PT TOLERATED WELL. PT AT THIS TIME CURRENTLY REMAINS SITTING UP IN CHAIR AND REMAINS ON 02 VIA NC AT 4L WITH SA02 NOTED AT 100. CALL LIGHT AND OTHER PERSONAL ITEMS WITHIN REACH WILL CONTINUE TO MONITOR.
[2020-02-03] MEDS: IPRATROPIUM INHALER (ATROVENT) 12.9 GM INH SCH ×2 (19:02→22:13)
--- NOTE | 2020-02-03 19:27 | NUR ---
DR DUNAWAY NOTIFIED OF PT'S NEGATIVE TEST RESULTS FOR COVID ORDERS RECEIVED TO REMOVE ISOLATION
[2020-02-03] MEDS: meTOprolol TARTRATE 25 MG (LOPRESSOR) TABLET PO SCH (20:17)
[2020-02-03] MEDS: ADVAIR HFA 115/21 MCG INHALER 8 GM IH SCH (22:13)
[2020-02-04] VITALS (15 sets, daily range): BP systolic 123–188; BP diastolic 65–109
[2020-02-04] MEDS: hydrALAZINE (APESOLINE) 20 MG/ML VIAL IV SCH ×4 (00:12→18:06)
[2020-02-04] MEDS: IPRATROPIUM INHALER (ATROVENT) 12.9 GM INH SCH ×6 (03:03→21:58)
[2020-02-04] MEDS: RT-ALBUTEROL INHALER HFA (VENTOLIN HFA) 18 GM IH SCH ×6 (03:07→21:58)
--- NOTE | 2020-02-04 04:32 | Pulmonary Progress Note ---
Subjective Time Seen by a Provider: 04:27 Subjective/Events-last exam PT appears to be doing better. Sepsis Event Evaluation Height, Weight, BMI Height: '" Weight: lbs. oz. kg; 54.00 BMI Method: Focused Exam Lactate Level 02/03/20 01:10: Lactic Acid Level 1.08 Exam Exam Vital Signs Date Time Temp Pulse Resp B/P (MAP) Pulse Ox O2 Delivery O2 Flow Rate FiO2 02/04/20 04:00 61 18 176/109 (131) 97 Nasal Cannula 2.00 02/04/20 03:10 Nasal Cannula 2.00 02/04/20 03:08 Nasal Cannula 3.00 97 02/04/20 03:00 61 18 153/106 (122) 99 Nasal Cannula 4.00 02/04/20 02:00 64 20 170/88 (115) 97 Nasal Cannula 4.00 02/04/20 01:00 65 02/04/20 01:00 64 20 164/87 (112) 98 Nasal Cannula 4.00 02/04/20 00:00 63 19 147/70 (95) 99 Nasal Cannula 4.00 02/04/20 00:00 36.1 02/04/20 00:00 99 Nasal Cannula 4.00 02/03/20 23:00 69 24 159/84 (109) 98 Nasal Cannula 4.00 02/03/20 22:14 Nasal Cannula 4.00 96 02/03/20 22:00 65 21 167/96 (119) 98 Nasal Cannula 4.00 02/03/20 21:00 114 16 143/94 (110) 99 Nasal Cannula 4.00 02/03/20 20:00 99 Nasal Cannula 4.00 02/03/20 20:00 75 29 173/93 (119) 100 Nasal Cannula 4.00 02/03/20 19:03 98 Nasal Cannula 4.00 100 02/03/20 19:00 36.1 80 18 173/93 (119) 99 Nasal Cannula 4.00 02/03/20 19:00 74 02/03/20 18:00 75 21 166/90 (115) 100 Nasal Cannula 11.00 02/03/20 17:46 Nasal Cannula 11.00 02/03/20 17:00 80 13 148/84 (105) 97 Nasal Cannula 4.00 02/03/20 16:30 96 NIV Bilevel 02/03/20 16:00 76 20 153/98 (116) 96 Nasal Cannula 4.00 02/03/20 15:00 75 19 147/83 (104) 96 Nasal Cannula 4.00 02/03/20 14:00 77 20 160/85 (110) 97 Nasal Cannula 4.00 02/03/20 13:49 36.2 84 98 02/03/20 13:34 84 33 98 30.00 02/03/20 13:09 36.2 02/03/20 13:02 92 02/03/20 13:00 Nasal Cannula 4.00 02/03/20 13:00 87 13 156/93 (114) 95 Nasal Cannula 4.00 02/03/20 12:15 96 NIV Bilevel 02/03/20 12:02 NIV Bilevel 35.00 02/03/20 12:00 115 27 154/100 (118) 92 NIV Bilevel 24.00 02/03/20 11:00 74 26 146/78 (100) 89 NIV Bilevel 24.00 02/03/20 10:00 71 20 156/100 (118) 92 NIV Bilevel 24.00 02/03/20 09:49 NIV Bilevel 24.00 02/03/20 09:43 81 26 95 24.00 02/03/20 09:31 36.8 02/03/20 09:00 73 21 142/68 (92) 89 NIV Bilevel 28.00 02/03/20 08:00 71 23 153/79 (103) 95 NIV Bilevel 28.00 02/03/20 08:00 95 NIV Bilevel 02/03/20 07:00 NIV Bilevel 28.00 02/03/20 07:00 85 37 181/102 (128) 95 NIV Bilevel 28.00 02/03/20 06:48 75 30 95 28.00 02/03/20 06:37 81 02/03/20 06:00 71 21 184/95 (124) 97 Nasal Cannula 5.00 02/03/20 05:26 36.7 77 98 02/03/20 05:07 98 Nasal Cannula 6.00 02/03/20 05:00 71 20 179/94 (122) 97 Nasal Cannula 5.00 I & O 02/04/20 07:00 Intake Total 1110 ml Output Total 2275 ml Balance -1165 ml Height & Weight Height: '" Weight: lbs. oz. kg; 54.00 BMI Method: General Appearance: Chronically ill, Obese, Other (breathing comfortably on BiPAP) HEENT: PERRL/EOMI, Other (obscurred by BiPAP) Respiratory: No Accessory Muscle Use; No Rhonci; Wheezing, Other (on BiPAP) Cardiovascular: Regular Rate, Rhythm, No Murmur, Normal Peripheral Pulses Capillary Refill: Less Than 3 Seconds Gastrointestinal: normal bowel sounds, non tender, soft Extremity: No Calf Tenderness, No Pedal Edema Neurologic/Psychiatric: Alert, Oriented x3, Normal Mood/Affect Skin: Normal Color, Warm/Dry Results Lab Laboratory Tests 02/03/20 01:00 02/03/20 05:48 Assessment/Plan Assessment/Plan Acute on chronic respiratory failure -Currently on NC -BiPAP PRN Morbid obesity with OHS -CO2 on ABG is 89 at admission -Pt will benefit from home vent to mask -Will continue to follow in my office after discharge. -Education COPDAE -Albuterol, advair -Solumedrol Hypertension ANICETO CORDOVA DO Feb 04, 2020 04:32
[2020-02-04 04:34] LABS: BASOPHILS % (AUTO) 0 % (0-10); EOSINOPHILS % (AUTO) 0 % (0-10); HEMATOCRIT 46 % (35-52); HEMOGLOBIN 14.8 G/DL (11.5-16.0); LYMPHOCYTES # (AUTO) 0.8 X 10^3 (1.0-4.0); LYMPHOCYTES % (AUTO) 11 % (12-44); MEAN CORPUSCULAR HEMOGLOBIN 33 PG (25-34); MEAN CORPUSCULAR HGB CONC 32 G/DL (32-36); MEAN CORPUSCULAR VOLUME 103 FL (80-99); MEAN PLATELET VOLUME 8.6 FL (7.4-10.4); MONOCYTES # (AUTO) 0.2 X 10^3 (0.0-1.0); MONOCYTES % (AUTO) 3 % (0-12); NEUTROPHILS % (AUTO) 86 % (42-75); PLATELET COUNT 330 10^3/uL (130-400); RED CELL DISTRIBUTION WIDTH 13.3 % (10.0-14.5)
[2020-02-04 04:43] LABS: BILIRUBIN,URINE NEGATIVE (NEGATIVE); CLARITY,URINE SL CLOUDY; COLOR,URINE DARK YELLOW; GLUCOSE, URINE (UA) NEGATIVE (NEGATIVE); KETONES,URINE NEGATIVE (NEGATIVE); LEUKOCYTE ESTERASE ,URINE 1+ (NEGATIVE); NITRITE,URINE POSITIVE (NEGATIVE); PROTEIN,URINE 1+ (NEGATIVE)
[2020-02-04 04:47] LABS: CHLORIDE 94 MMOL/L (98-107); POTASSIUM 4.1 MMOL/L (3.6-5.0); SODIUM 138 MMOL/L (135-145)
[2020-02-04 04:48] LABS: CALCIUM 9.6 MG/DL (8.5-10.1)
[2020-02-04 04:49] LABS: GLUCOSE 142 MG/DL (70-105)
[2020-02-04 04:50] LABS: CARBON DIOXIDE 34 MMOL/L (21-32)
[2020-02-04 04:52] LABS: PHOSPHORUS 3.1 MG/DL (2.3-4.7)
[2020-02-04 04:53] LABS: CREATININE SERUM 0.71 MG/DL (0.60-1.30); GFR ESTIMATED > 60
[2020-02-04 04:54] LABS: BUN/CREATININE RATIO 30
[2020-02-04 04:55] LABS: RBC,URINE 25-50 /HPF
[2020-02-04 04:55] LABS: MAGNESIUM 1.5 MG/DL (1.6-2.4)
[2020-02-04 04:56] LABS: BACTERIA,URINE LARGE /HPF; CALCIUM OXALATE CRYSTALS,UR FEW /LPF; SQUAMOUS EPITHELIAL CELL,UR RARE /HPF
[2020-02-04 05:14] LABS: BLAST CELLS 1 %; LYMPHOCYTES % (MANUAL) 12 %; MONOCYTES % (MANUAL) 3 %; NEUTROPHILS % (MANUAL) 85 %
[2020-02-04 05:15] LABS: ANISOCYTOSIS MODERATE; HYPOCHROMASIA MODERATE
[2020-02-04] MEDS: KCL 20 MEQ TAB (K-DUR) PO SCH ×2 (05:54→09:23)
[2020-02-04] MEDS: POTASSIUM CL 10MEQ/50ML IVPB 50 ML IV SCH (05:54)
[2020-02-04] MEDS: MAGNESIUM 1 GM/100 ML IVPB 100 ML IV SCH (05:54)
[2020-02-04 06:18] LABS: ABG BASE EXCESS 16.1 MMOL/L (-2.5-2.5); ABG OXYGEN SATURATION 94 % (94-100); ABG PCO2 65 MMHG (35-45); ABG PH 7.42 (7.37-7.43); ABG PO2 65 MMHG (79-93); ABG TCO2 43.7 MMOL/L (21.0-31.0)
[2020-02-04 06:25] LABS: ALLENS TEST POSITIVE; INSPIRED O2 30; PATIENT TEMP 36.4; VENTILATOR NO
[2020-02-04] MEDS: cefTRIAXone FOR IV USE 1,000 MG in WATER (STERILE) FOR INJECTION 10 ML IV SCH (06:58)
[2020-02-04] MEDS: ADVAIR HFA 115/21 MCG INHALER 8 GM IH SCH ×2 (07:03→18:48)
--- NOTE | 2020-02-04 08:22 | Diagnostic Imaging Report ---
INDICATION: COPD exacerbation. COMPARISON: 02/03/2020 FINDINGS: Single frontal radiographic view of the chest was obtained and demonstrates normal cardiac silhouette. Pulmonary vasculature is mildly prominent. Lungs are clear. There is no focal consolidation, large effusion, nor pneumothorax. Osseous structures show no acute abnormalities. IMPRESSION: 1. Mild vascular congestion. Dictated by: Dictated on workstation # [id number]
[2020-02-04] MEDS: FUROSEMIDE 40 MG/4 ML INJ (LASIX) IVP SCH (09:18)
[2020-02-04] MEDS: HYDROCHLOROTHIAZIDE 25 MG (HCTZ) TAB PO SCH (09:18)
[2020-02-04] MEDS: PANTOPRAZOLE 40 MG (PROTONIX) VIAL IV SCH (09:18)
[2020-02-04] MEDS: meTOprolol TARTRATE 25 MG (LOPRESSOR) TABLET PO SCH ×2 (09:18→21:55)
[2020-02-04] MEDS: lisINopril 20 MG (PRINIVIL) TABLET PO SCH (09:18)
[2020-02-04] MEDS: FLUoxetine HCL 20 MG (PROzac) CAP PO SCH (09:19)
[2020-02-04] MEDS: ACETAMINOPHEN 325 MG TABLET PO PRN (09:20)
[2020-02-04] MEDS: predniSONE 20 MG TAB PO SCH (09:23)
[2020-02-04] MEDS: ENOXAPARIN 60 MG/0.6 ML (LOVENOX) SYR SC SCH ×2 (09:23→21:56)
--- NOTE | 2020-02-04 09:43 | Progress Note - Hospitalist ---
Subjective HPI/CC On Admission Date Seen by Provider: Feb 04, 2020 Time Seen by Provider: 09:40 Pt is a 65yoAAF with a PMH of HTN and COPD who presented to the ER due to shortness of breath. She was seen in the ER two days ago due to SOB and was prescribed a z-pack and steroids but despite this she did not improve. She continued to use her nebulizer more too without relief. She returned to the ER last night due to worsening symptoms and was admitted to the ICU due to acute hypoxic respiratory failure. She was placed on BiPAP this morning and states she is feeling much better and breathing easier. Subjective/Events-last exam Pt reports feeling better today. no complaints. off BiPAP. Breathing much better . Focused Exam Lactate Level 02/03/20 01:10: Lactic Acid Level 1.08 Objective Exam Vital Signs Vital Signs Date Time Temp Pulse Resp B/P (MAP) Pulse Ox O2 Delivery O2 Flow Rate FiO2 02/04/20 08:51 36.2 02/04/20 07:03 97 High Flow N/C 02/04/20 07:00 71 10 136/69 (91) 2.00 02/04/20 03:08 97 Capillary Refill : Less Than 3 Seconds General Appearance: No Apparent Distress, Chronically ill, Obese Respiratory: Lungs Clear, No Accessory Muscle Use Cardiovascular: Regular Rate, Rhythm, No Murmur Neurologic/Psychiatric: Alert, Oriented x3 Results/Procedures Lab Laboratory Tests 02/04/20 04:21 Patient resulted labs reviewed. Assessment/Plan Assessment and Plan Assess & Plan/Chief Complaint Acute on Chronic Hypoxic Respiratory Failure Acute Exacerbation of COPD Now off BiPAP, transfer to the 4th floor Pulm consulted, appreciate recs Prednisone MAT protocol COVID negative Advair Started to have sputum- Rocephin started - sputum culture ordered HTN Continue home meds DVT ppx: Lovenox Critical Care Critically Ill Patient Diagnosis/Problems Diagnosis/Problems (1) Essential (primary) hypertension Status: Chronic (2) Tobacco abuse Status: Chronic (3) Morbid obesity with BMI of 50.0-59.9, adult Status: Chronic (4) Hypomagnesemia Status: Acute (5) Acute respiratory failure Status: Acute Qualifiers: Respiratory failure complication: hypoxia and hypercapnia Qualified Codes: J96.01 - Acute respiratory failure with hypoxia; J96.02 - Acute respiratory failure with hypercapnia (6) COPD (chronic obstructive pulmonary disease) Status: Acute Qualifiers: COPD type: COPD with acute exacerbation Qualified Codes: J44.1 - Chronic obstructive pulmonary disease with (acute) exacerbation (7) Person under investigation for severe acute respiratory syndrome coronavirus 2 (SARS-CoV-2) infection Status: Acute Clinical Quality Measures DVT/VTE Risk/Contraindication: Risk Factor Score Per Nursin RFS Level Per Nursing on Admit: 4+=Very High NOHEMY DUNAWAY MD Feb 04, 2020 09:43
--- NOTE | 2020-02-04 10:20 | NUR ---
PT TRANSFERRED TO ROOM 429 VIA W/C ACCOMPANIED BY THIS RN, REPORT GIVEN TO ANDREIA VALVERDE. ALL PERSONAL BELONGINGS SENT WITH PT.
--- NOTE | 2020-02-04 10:21 | NUR ---
Patient arrived to room from ICU, patient sitting up in recliner, voices no complaints, all belongings and call light within reach. I agree with previous penetration tester and will assume care at this time.
--- NOTE | 2020-02-04 10:23 | NUR ---
CM/SS: Visited with pt as to plan for discharge Plan: Pt is from home - and currently has oxygen in the home Summary: Pt reports feeling better. Pt is known to this worker from the [facility]. Pt report living with her son and that he helps her in the home. Pt reports that she had been to ER previously in [place] and that she just did not get to feeling better. Pt is thankful that she tested negative for COVID. Pt reports that he sister is in the loop as far as her health is concerned, as she is a nurse. Pt reports that she did get to go to her brother in laws , it was just so different, based on COVID. Pt reports that the family was unable to really tell him goodbye as he was in [facility]. Pt reports some fear about going out to [employer] or to the grocery store as she has COPD. Pt reports oxygen at home and that she will need a portable when she leaves the hospital. Pt is open to home care if needed and that she has not had it recently. Discussed that pt has a ride home and she reports her sister will pick her up when the time comes. Pt is eager to move to the fourth floor from the ICU. This worker will follow up. Addendum: 02/04/20 at 1347 by SAMIR GALVEZ CM/SS: [facility] [phone] - notified about pt's oxygen and that it is ok that pts sister will olive picker a portable oxygen tank on tomorrow when pt is discharged. They will have a portable tank ready. Addendum: 02/04/20 at 1353 by SAMIR GALVEZ SS CM/SS: Sister of pt - Val Akins [phone] - notified that she can olive picker the portable oxygen tank tomorrow from [facility] prior to picking up pt for dismissal. She also request that pt have home care services. This worker will follow up with the physician.
--- NOTE | 2020-02-04 15:12 | NUR ---
CM/SS: Visited with pt as to plan for discharge Plan: Pt is requesting Home Care Services at time of discharge Summary: Pt has requested Home Care Services. [facility] has been identified as the Home Care of choice. This worker will visit with physician as to Home Care Services on tomorrow. Pt's sister is at the bedside and feels like that is a good idea. She would like for pt to be more compliant in taking care of herself. Pt is educated on establishing a doctor as well as being compliant with all instructions from her discharge from the hospital. Pt verbalizes understanding. This worker will follow up.
[2020-02-05] MEDS: IPRATROPIUM INHALER (ATROVENT) 12.9 GM INH SCH ×3 (01:46→11:13)
[2020-02-05] MEDS: RT-ALBUTEROL INHALER HFA (VENTOLIN HFA) 18 GM IH SCH ×3 (01:46→11:13)
[2020-02-05 04:00] VITALS: BP 139/65
[2020-02-05 05:51] LABS: BASOPHILS % (AUTO) 0 % (0-10); EOSINOPHILS % (AUTO) 0 % (0-10); HEMATOCRIT 46 % (35-52); HEMOGLOBIN 14.6 G/DL (11.5-16.0); LYMPHOCYTES # (AUTO) 2.2 X 10^3 (1.0-4.0); LYMPHOCYTES % (AUTO) 31 % (12-44); MEAN CORPUSCULAR HEMOGLOBIN 33 PG (25-34); MEAN CORPUSCULAR HGB CONC 32 G/DL (32-36); MEAN CORPUSCULAR VOLUME 103 FL (80-99); MEAN PLATELET VOLUME 8.7 FL (7.4-10.4); MONOCYTES # (AUTO) 0.8 X 10^3 (0.0-1.0); MONOCYTES % (AUTO) 11 % (0-12); NEUTROPHILS # (AUTO) 4.2 X 10^3 (1.8-7.8); NEUTROPHILS % (AUTO) 59 % (42-75); PLATELET COUNT 348 10^3/uL (130-400); RED CELL DISTRIBUTION WIDTH 13.1 % (10.0-14.5); WHITE BLOOD COUNT 7.2 10^3/uL (4.3-11.0)
[2020-02-05] MEDS ORDERED: WATER (STERILE) FOR INJECTION 10 ML ONE (05:55)
[2020-02-05] MEDS ORDERED: cefTRIAXone 1,000 MG IV (ROCEPHIN) VIAL ONE (05:55)
[2020-02-05] MEDS: cefTRIAXone FOR IV USE 1,000 MG in WATER (STERILE) FOR INJECTION 10 ML IV SCH (06:02)
[2020-02-05 06:03] LABS: CHLORIDE 94 MMOL/L (98-107); POTASSIUM 3.6 MMOL/L (3.6-5.0); SODIUM 141 MMOL/L (135-145)
[2020-02-05] MEDS: hydrALAZINE (APESOLINE) 20 MG/ML VIAL IV SCH ×3 (06:03→11:55)
[2020-02-05 06:04] LABS: CALCIUM 9.7 MG/DL (8.5-10.1); GLUCOSE 91 MG/DL (70-105)
[2020-02-05 06:06] LABS: CARBON DIOXIDE 37 MMOL/L (21-32)
[2020-02-05 06:08] LABS: CREATININE SERUM 0.71 MG/DL (0.60-1.30); GFR ESTIMATED > 60
[2020-02-05 06:09] LABS: BUN/CREATININE RATIO 31
--- NOTE | 2020-02-05 06:49 | Pulmonary Progress Note ---
Subjective Time Seen by a Provider: 06:48 Sepsis Event Evaluation Height, Weight, BMI Height: '" Weight: lbs. oz. kg; 54.00 BMI Method: Focused Exam Lactate Level 02/03/20 01:10: Lactic Acid Level 1.08 Exam Exam Vital Signs Date Time Temp Pulse Resp B/P (MAP) Pulse Ox O2 Delivery O2 Flow Rate FiO2 02/05/20 04:00 36.9 64 18 139/65 (89) 92 High Flow N/C 2.00 2.00 02/05/20 01:44 77 21 97 30.00 02/04/20 23:56 35.6 70 16 123/77 (92) 98 NIV Bilevel 2.00 2.00 02/04/20 22:02 80 21 98 30.00 02/04/20 21:59 96 High Flow N/C 2.00 02/04/20 21:00 36.8 77 18 131/75 (93) 90 Nasal Cannula 2.00 02/04/20 21:00 98 High Flow N/C 2.00 02/04/20 18:48 96 High Flow N/C 2.00 02/04/20 16:20 36.5 67 20 146/80 (102) 94 Nasal Cannula 2.00 02/04/20 14:37 94 High Flow N/C 2.00 02/04/20 13:00 36.7 65 20 130/78 (95) 93 Nasal Cannula 2.00 02/04/20 10:49 93 High Flow N/C 2.00 02/04/20 10:20 36.0 71 20 149/65 (93) 95 Nasal Cannula 2.00 02/04/20 09:00 69 13 145/81 (102) 98 Nasal Cannula 2.00 02/04/20 09:00 69 13 98 Nasal Cannula 2.00 02/04/20 08:51 36.2 02/04/20 08:00 68 46 145/81 (102) 97 Nasal Cannula 2.00 02/04/20 08:00 99 Nasal Cannula 2.00 02/04/20 08:00 68 46 145/81 (102) 97 Nasal Cannula 2.00 02/04/20 07:03 97 High Flow N/C 02/04/20 07:01 68 02/04/20 07:00 71 10 136/69 (91) 97 Nasal Cannula 2.00 I & O 02/05/20 07:00 Intake Total 1860 ml Output Total 2200 ml Balance -340 ml Height & Weight Height: '" Weight: lbs. oz. kg; 54.00 BMI Method: General Appearance: No Apparent Distress, WD/WN, Chronically ill, Obese HEENT: PERRL/EOMI Respiratory: No Accessory Muscle Use, No Respiratory Distress, Decreased Breath Sounds; No Rhonci Cardiovascular: Regular Rate, Rhythm, No Murmur, Normal Peripheral Pulses Capillary Refill: Less Than 3 Seconds Gastrointestinal: normal bowel sounds, non tender, soft Extremity: No Calf Tenderness, No Pedal Edema Neurologic/Psychiatric: Alert, Oriented x3, Normal Mood/Affect Skin: Normal Color, Warm/Dry Results Lab Laboratory Tests 02/04/20 04:21 02/05/20 05:30 Assessment/Plan Assessment/Plan Acute on chronic respiratory failure -Currently on NC -BiPAP PRN Morbid obesity with OHS -CO2 on ABG is 89 at admission -Pt will benefit from home vent to mask -Will continue to follow in my office after discharge. -Education COPDAE -Albuterol, advair -Solumedrol Hypertension ANICETO CORDOVA DO Feb 05, 2020 06:49
[2020-02-05] MEDS: ADVAIR HFA 115/21 MCG INHALER 8 GM IH SCH (07:23)
[2020-02-05 08:00] VITALS: BP 144/70
[2020-02-05] MEDS: PANTOPRAZOLE 40 MG (PROTONIX) VIAL IV SCH (09:14)
[2020-02-05] MEDS: FUROSEMIDE 40 MG/4 ML INJ (LASIX) IVP SCH (09:14)
[2020-02-05] MEDS: FLUoxetine HCL 20 MG (PROzac) CAP PO SCH (09:15)
[2020-02-05] MEDS: lisINopril 20 MG (PRINIVIL) TABLET PO SCH (09:15)
[2020-02-05] MEDS: meTOprolol TARTRATE 25 MG (LOPRESSOR) TABLET PO SCH (09:15)
[2020-02-05] MEDS: KCL 20 MEQ TAB (K-DUR) PO SCH (09:15)
[2020-02-05] MEDS: HYDROCHLOROTHIAZIDE 25 MG (HCTZ) TAB PO SCH (09:15)
[2020-02-05] MEDS: predniSONE 20 MG TAB PO SCH (09:16)
--- NOTE | 2020-02-05 10:53 | Discharge Summary ---
Diagnosis/Chief Complaint Date of Admission Feb 03, 2020 at 03:04 Date of Discharge Admission Diagnosis Acute Hypoxic Respiratory Failure Primary Care Erin Morales MD Discharge Diagnosis (1) Essential (primary) hypertension Status: Chronic (2) Tobacco abuse Status: Chronic (3) Morbid obesity with BMI of 50.0-59.9, adult Status: Chronic (4) Hypomagnesemia Status: Acute (5) Acute respiratory failure Status: Acute (6) COPD (chronic obstructive pulmonary disease) Status: Acute (7) Person under investigation for severe acute respiratory syndrome coronavirus 2 (SARS-CoV-2) infection Status: Acute Discharge Summary Procedures/Consulations Dr Ney Newton Discharge Physical Exam Allergies: Coded Allergies: No Known Drug Allergies (Unverified , 04/28/18) Vitals & I&Os Vital Signs Date Time Temp Pulse Resp B/P (MAP) Pulse Ox O2 Delivery O2 Flow Rate FiO2 02/05/20 12:00 36.0 60 18 136/96 (109) 92 High Flow N/C 2.00 2.00 02/04/20 03:08 97 General Appearance: No Apparent Distress, Chronically ill, Obese Respiratory: Lungs Clear, No Accessory Muscle Use Cardiovascular: Regular Rate, Rhythm, No Murmur Neurologic/Psychiatric: Alert, Oriented x3 Hospital Course Ms Adorno was admitted to the hospital due to acute on chronic respiratory failure secondary to a COPD exacerbation. She required BiPAP early in her admission but did well and was clinically titrated off of this. She was treated with steroids and scheduled breathing treatments and did very well. She was titrated down to her baseline oxygen requirement. She was tested for COVID and was negative. She was discharged home in stable condition to follow up with her primary care provider, Maria Isabel Wei APRN. She was encouraged to quit smoking. Labs (last 24 hrs) Microbiology 02/04/20 Urine Culture - Preliminary, Resulted Klebsiella pneumoniae 02/03/20 MRSA Screen - Final, Complete MRSA not isolated 02/03/20 Blood Culture - Preliminary, Resulted No growth Patient resulted labs reviewed. Pending Labs Discussion & Recommendations Discharge Planning: >30 minutes discharge planning Discharge Home Medications: Active Scripts Active Advair Hfa 115-21 Mcg Inhaler (Fluticasone/Salmeterol) 12 Gm Hfa.aer.ad 0 Puff IH RTBID Prednisone 20 Mg Tab 40 Mg PO DAILY@0900 Reported Albuterol Sulfate 2.5 Mg/0.5 Ml Vial.neb 2.5 Mg INH Q6H Proair Hfa (Albuterol Sulfate) 1 Puff Puff 2 Puff IH Q4H PRN Lisinopril-Hctz 20-25 mg Tab (Lisinopril/Hydrochlorothiazide) 1 Each Tablet 1 Each PO DAILY Metoprolol Tartrate 25 Mg Tablet 25 Mg PO BID Instructions to patient/family Please see electronic discharge instructions given to patient. Clinical Quality Measures DVT/VTE Risk/Contraindication: Risk Factor Score Per Nursin RFS Level Per Nursing on Admit: 4+=Very High Copy Copies To 1: Maria Isabel Wei Problem Qualifiers (1) Acute respiratory failure: Respiratory failure complication: hypoxia and hypercapnia Qualified Codes: J96.01 - Acute respiratory failure with hypoxia; J96.02 - Acute respiratory failure with hypercapnia (2) COPD (chronic obstructive pulmonary disease): COPD type: COPD with acute exacerbation Qualified Codes: J44.1 - Chronic obstructive pulmonary disease with (acute) exacerbation NOHEMY DUNAWAY MD Feb 05, 2020 10:53
--- NOTE | 2020-02-05 10:55 | D/C HH Face to Face Order ---
D/C Face to Face Orders Instructions for Patient Via [facility], Patient Instructions/FollowUp: Please continue to take your medications as written. Please follow up with your primary care doctor to follow up this hospital stay. Physician to follow Patient: Maria Isabel Wei APRN Discharge Diet for Home: No Restrictions Patient Data-Allergies,Ht & Wt Patient Allergies: Coded Allergies: No Known Drug Allergies (Unverified , 04/28/18) Home Health Need/Face to Face Date of Face to Face: Feb 05, 2020 Clinical Findings: Shortness of breath I have seen Pt [id number]: Yes Discharged To: Home Diagnosis/Conditions: COPD Patient is Homebound due to: Shortness of breath/distress Homebound Status Due to the above stated illness, injury or surgical procedure (medical condition or diagnosis) and associated clinical findings, the patient is homebound because of his/her inability to leave home except with aid of a supportive device and/or person AND leaving the home requires a considerable and taxing effort or is medically contraindicated. Pt req the following assistanc: Aid of another person Home Health Nursing Orders Home Health Services Order: Nursing Services, Physical Therapy-Evaluate & Treat Therapy Orders Therapy Orders: Physical Therapy, PT to assess for OT Therapy Specific Orders: Eval assistive deivces, Teach enviro modifications/safety, Gait training, Increase strength/endurance Certify Stmt I certify that this patient is under my care and that I, a nurse practitioner or a physician; a assistant manager retail working with me, had a face to face encounter that - meets the physician face to face encounter requirements with this patient as dated. NOHEMY DUNAWAY MD Feb 05, 2020 10:55
--- NOTE | 2020-02-05 11:30 | NUR ---
CM/SS: Visited with pt as to plan for discharge Plan: Pt will discharge to home with [facility] Summary: Pt reports feeling better on today. Pt is reminded that [facility] will be in contact with her as to making a home visit. Pt is aware that they will plan to see her on Saturday. Pt will also have a follow up with Dr. Sahni for Pulmonary and follow up with her primary. She is still needing to establish a physician as well as follow up with her nurse practitioner. Pt is also reminded to be compliant and do what the physicians have suggested to her. Pt verbalizes understanding. Pt's sister will be picking her up from the hospital sometime this afternoon. Pt is wished well. Pt thanks this worker for her help.
[2020-02-05] MEDS: ENOXAPARIN 60 MG/0.6 ML (LOVENOX) SYR SC SCH (11:55)
[2020-02-05] MEDS ORDERED: PRD20T PO (11:58)
[2020-02-05] MEDS ORDERED: FLUT12AE4 IH (11:58)
[2020-02-05 12:00] VITALS: BP 136/96
--- NOTE | 2020-02-05 14:10 | NUR ---
PT IS DISCHARGED TO HOME VIA PRIVATE VEHICLE THAT HER SISTER, ZULEIKA, CAME TO PICK HER UP IN. PT SIGNED D/C PAPER AND HAS HER D/C PAPERWORK WITH HER.
== END 2020-02-05 14:10 | disposition home health service (06) | DRG 189 ==
LOC: EDUNIT# 00:49 → ER FS 00:54 → ICU 03:04 → 4TH 02-04 10:14
PROVIDERS: ADMIT Internal Medicine; ATTEND Internal Medicine
DX: J96.21 Acute and chronic respiratory failure with hypoxia (principal); J44.1 Chronic obstructive pulmonary disease with (acute) exacerbation; Z68.43 Body mass index [BMI] 50.0-59.9, adult; E66.2 Morbid (severe) obesity with alveolar hypoventilation; J96.22 Acute and chronic respiratory failure with hypercapnia; E87.6 Hypokalemia; I10 Essential (primary) hypertension; F17.210 Nicotine dependence, cigarettes, uncomplicated; E83.42 Hypomagnesemia; Z20.828 Contact with and (suspected) exposure to other viral communicable diseases; Z99.81 Dependence on supplemental oxygen
CPT/HCPCS: 36415; 36600; 71045; 80048; 80053; 81000; 82805; 83605; 83735; 83880; 84100; 85007; 85025; 85027; 86769; 87040; 87077; 87081; 87088; 87186; 87635; 93005; 93306; 94640; 94660; 94760; 99291

== ENCOUNTER → 2020-03-25 | Outpatient (CLI) | payer MEDICAID ==
[~2020-03-25] MED LIST changes: +ALB0.5V INH; +FLUT12AE4 IH; +LISI1TAB26 PO; +METO-333 PO; +RT-ALBUINH IH
== END ==
LOC: LABNPT 05:27
PROVIDERS: ATTEND Nurse Practitioner Family
DX: Z53.9 Procedure and treatment not carried out, unspecified reason (principal)

== ENCOUNTER → 2020-04-08 | Outpatient (CLI) | payer MEDICAID | LOC: LABNPT 08:57 | PROVIDERS: ATTEND Internal Medicine Critical Care Medicine | DX: Z01.812 Encounter for preprocedural laboratory examination (principal); Z20.828 Contact with and (suspected) exposure to other viral communicable diseases | CPT/HCPCS: 87635 ==

== ENCOUNTER 2020-04-11 19:40 | Outpatient (CLI) | payer MEDICAID | END 2020-04-12 07:13 | disposition home or self-care (01) | LOC: SLEEP 19:40 | PROVIDERS: ATTEND Nurse Practitioner Family | DX: J43.9 Emphysema, unspecified (principal); J30.9 Allergic rhinitis, unspecified; F17.210 Nicotine dependence, cigarettes, uncomplicated | CPT/HCPCS: 95811 ==

== ENCOUNTER → 2020-04-12 | Outpatient (CLI) | payer MEDICAID ==
[~2020-04-12] MED LIST changes: +HOLD METFORMIN - RECEIVED CONTRAST 20 ML VIAL IV SCH; +IOHEXOL 350 MG/ML 100 ML (OMNIPAQUE 350) VIAL IV ONE; +NS 100 ML (IVPB) BAG IV ONE
[2020-04-12 07:52] LABS: BUN/CREATININE RATIO 14; CREATININE SERUM 0.79 MG/DL (0.60-1.30); GFR ESTIMATED > 60
--- NOTE | 2020-04-12 09:25 | Diagnostic Imaging Report ---
INDICATION: Shortness of breath. TECHNIQUE: Multiple contiguous axial images were obtained through the chest after administration of intravenous contrast. Auto Exposure Controls were utilized during the CT exam to meet ALARA standards for radiation dose reduction. There is no previous chest CT for comparison. FINDINGS: There are no enlarged mediastinal or hilar nodes. There are no enlarged axillary nodes or chest wall masses. There is no pleural or pericardial effusion. Visualized portions of the upper abdomen demonstrate benign cysts in each kidney but no overt mass lesion or abnormal fluid collection. Lung parenchymal windows demonstrate a minimal area of scarring or atelectasis in the left upper lobe laterally. There is no alveolar consolidation or overt mass lesion. There is some minimal linear scarring in the right lower lobe posteromedially. IMPRESSION: CT chest shows a minimal area of scarring versus atelectasis in the left upper lobe as well as a minimal area of linear scarring versus atelectasis in the right lower lobe posterior medially. There is no pleural fluid or pericardial fluid or adenopathy. Incidental bilateral renal cysts are noted. Dictated by: Dictated on workstation # [id number]
== END ==
LOC: RAD 08:45
PROVIDERS: ATTEND Nurse Practitioner Family
DX: J96.90 Respiratory failure, unspecified, unspecified whether with hypoxia or hypercapnia (principal); J98.4 Other disorders of lung; N28.1 Cyst of kidney, acquired; E66.01 Morbid (severe) obesity due to excess calories; F17.210 Nicotine dependence, cigarettes, uncomplicated
CPT/HCPCS: 36415; 71260; 82565; 84520

== ENCOUNTER → 2020-05-16 | Outpatient (CLI) | payer MEDICAID ==
[~2020-05-16] VITALS: Ht 162 cm; Wt 137.0 kg
[~2020-05-16] MED LIST changes: +CATHETER FLUSH 10 ML SYR IV PRN; -HOLD METFORMIN - RECEIVED CONTRAST 20 ML VIAL IV SCH; -IOHEXOL 350 MG/ML 100 ML (OMNIPAQUE 350) VIAL IV ONE; -NS 100 ML (IVPB) BAG IV ONE; +REGADENOSON 0.4 MG/5 ML SYR (LEXISCAN) IV ONE
[2020-05-16 09:23] VITALS: BP 151/85
--- NOTE | 2020-05-16 11:19 | Cardiology Stress Test Report ---
Stress Test Report Date of Procedure/Referring: Date of Procedure: May 16, 2020 PCP Sharmila Hutchinson MD Admitting Physician Erin Morales MD Indications: Chest pain Baseline Heart Rate: 81 Baseline Blood Pressure: Blood Pressure Systolic: 151 Blood Pressure Diastolic: 85 Baseline Vitals Vital Signs Date Time Temp Pulse Resp B/P (MAP) Pulse Ox O2 Delivery O2 Flow Rate FiO2 05/16/20 09:23 79 18 151/85 (107) 99 Room Air Baseline EKG: Baseline EKG: normal sinus rhythm Summary After explaining the procedure to the patient, she signed a consent and then brought to the stress nuclear laboratory. Patient received 0.4 mg Lexiscan for stress test, ECG, heart rate and blood pressure were monitored continuously. Resting and stress dose of radio tracer were injected, imaging was acquired and reviewed in short axis, horizontal long axis and vertical long axis views. TID: 1.05 SSS: 12 SDS: 10 EF: 52 1. Patient tolerated Lexiscan well 2. Breast attenuation with reversible ischemia involving the whole anterior wall and anteroapical segment suggestive of ischemia 3. Normal left ventricular size, mild hypokinesia of the anterior wall, mid to apical inferior wall, ejection fraction 52 percent SHARMILA HUTCHINSON MD May 16, 2020 11:19
== END ==
LOC: CARD 08:17
PROVIDERS: ATTEND Internal Medicine Cardiovascular Disease
DX: R07.9 Chest pain, unspecified (principal); I10 Essential (primary) hypertension; E78.2 Mixed hyperlipidemia; E66.01 Morbid (severe) obesity due to excess calories; Z72.0 Tobacco use
CPT/HCPCS: 78452; 93017

== ENCOUNTER → 2020-07-11 | Outpatient (CLI) | payer MEDICARE, MEDICAID ==
[~2020-07-11] MED LIST changes: -CATHETER FLUSH 10 ML SYR IV PRN; -REGADENOSON 0.4 MG/5 ML SYR (LEXISCAN) IV ONE
== END ==
LOC: LABNPT 09:09
PROVIDERS: ATTEND Internal Medicine Critical Care Medicine
DX: Z20.822 Contact with and (suspected) exposure to COVID-19 (principal)
CPT/HCPCS: 87635

== ENCOUNTER 2020-07-13 19:38 | Outpatient (CLI) | payer MEDICARE, MEDICAID | END 2020-07-14 06:40 | disposition home or self-care (01) | LOC: SLEEP 19:38 | PROVIDERS: ATTEND Nurse Practitioner Family | DX: G47.33 Obstructive sleep apnea (adult) (pediatric) (principal); R06.00 Dyspnea, unspecified; F17.200 Nicotine dependence, unspecified, uncomplicated | CPT/HCPCS: 95811 ==

== ENCOUNTER → 2020-07-15 | Outpatient (CLI) | payer MEDICARE, MEDICAID ==
[~2020-07-15] MED LIST changes: +RT-ALBUTEROL SULF 2.5 MG/3 ML PRE-MIX VIAL INH ONE
== END ==
LOC: RT 15:30
PROVIDERS: ATTEND Internal Medicine Critical Care Medicine
DX: R06.00 Dyspnea, unspecified (principal)
CPT/HCPCS: 94060; 94726; 94729

== ENCOUNTER 2021-01-05 12:49 | Outpatient (RCR) | payer MEDICARE, MEDICAID ==
[~2021-01-05 12:49] MED LIST changes: -RT-ALBUTEROL SULF 2.5 MG/3 ML PRE-MIX VIAL INH ONE
== END 2021-01-31 13:54 | disposition home or self-care (01) ==
PROVIDERS: ATTEND Family Medicine
DX: M54.2 Cervicalgia (principal); M54.6 Pain in thoracic spine; I10 Essential (primary) hypertension

== ENCOUNTER → 2021-04-13 | Outpatient (CLI) | payer MEDICARE, MEDICAID ==
--- NOTE | 2021-04-13 13:31 | Diagnostic Imaging Report ---
CT Lung Screening INDICATION:Screening for lung cancer, 46 pack year history of smoking, current smoker COMPARISON: 04/12/2020 TECHNIQUE: Noncontrast, low-dose CT imaging performed according to the lung cancer screening protocol. Auto Exposure Controls were utilize during the CT exam to meet ALARA standards for radiation dose reduction. FINDINGS:No significant adenopathy within chest. No aneurysmal dilatation of thoracic aorta. The heart is within normal limits in size. No pericardial effusion. No pleural effusion. Secretions within the trachea. No pneumothorax. Minimal scarring and/or atelectasis within the right middle lobe and right lower lobe. Otherwise, the lungs appear clear. The minimally visualized upper abdomen is unremarkable. Scattered osseous degenerative changes without acute osseous abnormality. IMPRESSION:No suspicious pulmonary nodule. No acute abnormality. LUNG-RADS CATEGORY:1: Negative MODIFIER:None FOLLOWUP: Continued annual low-dose CT of the chest in 12 months. Dictated by: Dictated on workstation # [id number]
== END ==
LOC: RAD 11:20
PROVIDERS: ATTEND Nurse Practitioner Family
DX: Z12.2 Encounter for screening for malignant neoplasm of respiratory organs (principal); F17.210 Nicotine dependence, cigarettes, uncomplicated
CPT/HCPCS: 71271

== ENCOUNTER → 2022-03-12 | Outpatient (CLI) | payer MEDICARE, MEDICAID ==
[~2022-03-12] MED LIST changes: -LISI1TAB26 PO; +LISI1TAB48 PO
--- NOTE | 2022-03-12 16:13 | Diagnostic Imaging Report ---
INDICATION: Fall with left shoulder pain. TIME OF EXAM: 10:56 AM. TECHNIQUE: Four views of the left shoulder were obtained. FINDINGS: The glenohumeral and acromioclavicular alignment is normal. The acromiohumeral space is normal. No fracture or dislocation is seen. There are hypertrophic degenerative changes to the acromioclavicular joint. IMPRESSION: Degenerative changes at the acromioclavicular joint. No acute bony abnormality is detected. Dictated by: Dictated on workstation # [id number]
== END ==
LOC: RAD FS 10:34
PROVIDERS: ATTEND Nurse Practitioner
DX: M19.012 Primary osteoarthritis, left shoulder (principal)
CPT/HCPCS: 73030

== ENCOUNTER 2022-08-25 15:52 | Emergency (ER) | payer MEDICARE, MEDICAID ==
[~2022-08-25] VITALS: Ht 162 cm; Wt 138.0 kg
[~2022-08-25 15:52] MED LIST changes: +ALBU8.5H6 IH; -RT-ALBUINH IH
--- NOTE | 2022-08-25 16:09 | ED Cough/URI ---
General Chief Complaint: Respiratory Problems Stated Complaint: SOA/COUGH Nursing Triage Note: PT WITH DAUGHTER STATES SOB FOR ABOUT A WEEK, GETTING WORSE, UTI SS Source: patient Exam Limitations: no limitations (ISAMAR MENARD) History of Present Illness Date Seen by Provider: Aug 25, 2022 Time Seen by Provider: 16:09 Initial Comments Patient is a 67-year-old female with a history of COPD currently on Advair and rescue inhaler albuterol who presents ED with cough, shortness of breath over the past week. She reports greenish sputum production with the cough. Shortness of breath has worsen over the past 3 days. Shortness of breath worse with walking. She states she can only take 2 or 3 steps without feeling short of breath. Patient has noticed some increased leg swelling bilateral. She justine es history of CHF, coronary artery disease. Follows Dr. Hutchinson. She reports some body aches and fatigue and weakness. According to daughter at bedside patient had oxygen level 89% at home. Does not wear oxygen. 96% currently on room air. She denies of any abdominal pain, chest pain, vomiting, diarrhea, fever, headache, fever, dizziness. She denies taking diuretics. No known kidney history. She has been out of her inhalers over the past month. She also complaining of urinary symptoms over the past 2 weeks with burning with urination and decreased urine output. History of urinary tract infection. Mild bilateral lower back discomfort. (ISAMAR MENARD) Allergies and Home Medications Allergies Coded Allergies: No Known Drug Allergies (Unverified , 04/28/18) Patient Home Medication List Home Medication List Reviewed: Yes (ISAMAR MENARD) Albuterol Sulfate (Ventolin Hfa) 1 Puff Puff, 2 PUFF IH Q4H PRN for SHORTNESS OF BREATH, (Reported) Entered as Reported by: KASEY ZACARIAS on 02/03/20 1229 Albuterol Sulfate (Albuterol Sulfate) 2.5 Mg/0.5 Ml Vial.neb, 2.5 MG INH Q6H, ( Reported) Entered as Reported by: KASEY ZACARIAS on 02/03/20 1229 Albuterol Sulfate (Ventolin Hfa) 1 Puff Puff, 2 PUFF INH Q4H Prescribed by: ROMMEL CROOK on 08/25/221854 Cefdinir (Cefdinir) 300 Mg Capsule, 300 MG PO BID Prescribed by: ROMMEL CROOK on 08/25/221854 Fluticasone/Salmeterol (Advair Hfa 115-21 Mcg Inhaler) 12 Gm Hfa.aer.ad, 0 PUFF IH RTBID Prescribed by: NOHEMY DUNAWAY on 02/05/201157 Fluticasone/Salmeterol (Advair Hfa 115-21 Mcg Inhaler) 115 Mcg-21 Mcg/Actuation Hfa.aer.ad, 12 GM IH BID Prescribed by: ROMMEL CROOK on 08/25/221854 Lisinopril/Hydrochlorothiazide (Lisinopril-Hctz 20-25 mg Tab) 1 Each Tablet, 1 EACH PO DAILY, (Reported) Entered as Reported by: KASEY ZACARIAS on 02/03/20 1229 Metoprolol Tartrate (Metoprolol Tartrate) 25 Mg Tablet, 25 MG PO BID, (Reported) Entered as Reported by: KASEY ZACARIAS on 02/03/20 1229 Prednisone (Prednisone) 20 Mg Tab, 40 MG PO DAILY@0900 Prescribed by: NOHEMY DUNAWAY on 02/05/20 115 Prednisone (Prednisone) 50 Mg Tab, 50 MG PO DAILY Prescribed by: ROMMEL CROOK on 08/25/221854 Review of Systems Review of Systems Constitutional: chills; No fever; malaise, weakness EENTM: No hearing loss, No blurred vision, No mouth pain, No mouth swelling, No nose pain, No throat pain Respiratory: cough, short of breath Cardiovascular: No chest pain Gastrointestinal: No abdominal pain, No diarrhea, No nausea, No vomiting Genitourinary: No decreased output, No discharge, No dysuria, No frequency Musculoskeletal: back pain; No joint pain Skin: No change in color, No change in hair/nails (ISAMAR MENARD) All Other Systems Reviewed Negative Unless Noted: Yes (ISAMAR MENARD) Past Hrhnmkd-Dcgdzl-Nbnvpb Hx Seasonal Allergies Seasonal Allergies: No (ISAMAR MENARD) Past Medical History Surgeries: Yes Section, Gallbladder, Tonsillectomy, Tubal Ligation Respiratory: Yes COPD Cardiac: Yes Hypertension Neurological: No Genitourinary: No Gastrointestinal: No Musculoskeletal: No Endocrine: No HEENT: No Cancer: No Psychosocial: No Integumentary: No (ISAMAR MENARD) Family Medical History No Pertinent Family Hx (ISAMAR MENARD) Physical Exam Vital Signs - First Documented 08/25/22 16:00 Temp 36.8 Pulse 109 Resp 24 B/P (MAP) 168/74 (105) Pulse Ox 96 O2 Delivery Room Air (BETY,VANNESA K DO) Capillary Refill : (ISAMAR MENARD) Height: '" Weight: lbs. oz. kg; 52.00 BMI Method: General Appearance: WD/WN, no apparent distress Eyes: Bilateral Eye Normal Inspection, Bilateral Eye PERRL, Bilateral Eye EOMI HEENT: PERRL/EOMI, normal ENT inspection, TMs normal, pharynx normal Neck: non-tender, full range of motion, supple Respiratory: chest non-tender, lungs clear, normal breath sounds, no respiratory distress, no accessory muscle use, wheezing (Bilateral inspiratory and expiratory) Cardiovascular: regular rate, rhythm, no edema, no gallop, no JVD Gastrointestinal: normal bowel sounds, non tender, soft, no organomegaly Extremities: normal range of motion, non-tender, normal inspection, no pedal edema Neurologic/Psychiatric: deckhand II-XII nml as tested, no motor/sensory deficits, alert, normal mood/affect, oriented x 3 Skin: normal color, warm/dry (ISMAAR MEANRD) Progress/Results/Core Measures Suspected Sepsis SIRS Temperature: Pulse: 109 Respiratory Rate: 24 Laboratory Tests 08/25/22 16:05: White Blood Count 5.6 Blood Pressure 168 /74 Mean: 105 Laboratory Tests 08/25/22 16:05: Creatinine 0.92, INR Comment 0.9, Platelet Count 284, Total Bilirubin 0.6 (ISAMAR MENARD) Results/Orders Lab Results Laboratory Tests Test 08/25/22 16:04 08/25/22 16:05 08/25/22 16:08 Range/Units Influenza Type A (RT-PCR) Not Detected Not Detecte Influenza Type B (RT-PCR) Not Detected Not Detecte SARS-CoV-2 RNA (RT-PCR) Not Detected Not Detecte White Blood Count 5.6 4.3-11.0 10^3/uL Red Blood Count 4.90 3.80-5.11 10^6/uL Hemoglobin 15.1 11.5-16.0 g/dL Hematocrit 47 35-52 % Mean Corpuscular Volume 97 80-99 fL Mean Corpuscular Hemoglobin 31 25-34 pg Mean Corpuscular Hemoglobin Concent 32 32-36 g/dL Red Cell Distribution Width 13.3 10.0-14.5 % Platelet Count 284 130-400 10^3/uL Mean Platelet Volume 8.3 L 9.0-12.2 fL Immature Granulocyte % (Auto) 0 % Neutrophils (%) (Auto) 67 42-75 % Lymphocytes (%) (Auto) 27 12-44 % Monocytes (%) (Auto) 5 0-12 % Eosinophils (%) (Auto) 1 0-10 % Basophils (%) (Auto) 0 0-10 % Neutrophils # (Auto) 3.7 1.8-7.8 X 10^3 Lymphocytes # (Auto) 1.5 1.0-4.0 X 10^3 Monocytes # (Auto) 0.3 0.0-1.0 X 10^3 Eosinophils # (Auto) 0.1 0.0-0.3 10^3/uL Basophils # (Auto) 0.0 0.0-0.1 10^3/uL Immature Granulocyte # (Auto) 0.0 0.0-0.1 10^3/uL Prothrombin Time 12.9 12.2-14.7 SEC INR Comment 0.9 0.8-1.4 Activated Partial Thromboplast Time 27 24-35 SEC Sodium Level 143 135-145 MMOL/L Potassium Level 3.4 L 3.6-5.0 MMOL/L Chloride Level 101 98-107 MMOL/L Carbon Dioxide Level 30 21-32 MMOL/L Anion Gap 12 5-14 MMOL/L Blood Urea Nitrogen 11 7-18 MG/DL Creatinine 0.92 0.60-1.30 MG/DL Estimat Glomerular Filtration Rate 69 BUN/Creatinine Ratio 12 Glucose Level 113 H 70-105 MG/DL Calcium Level 10.1 8.5-10.1 MG/DL Corrected Calcium 10.3 H 8.5-10.1 MG/DL Magnesium Level 1.5 L 1.6-2.4 MG/DL Total Bilirubin 0.6 0.1-1.0 MG/DL Aspartate Amino Transf (AST/SGOT) 13 5-34 U/L Alanine Aminotransferase (ALT/SGPT) 14 0-55 U/L Alkaline Phosphatase 91 40-136 U/L Troponin I < 0.028 <0.028 NG/ML B-Type Natriuretic Peptide 27.1 <100.0 PG/ML Total Protein 7.4 6.4-8.2 GM/DL Albumin 3.8 3.2-4.5 GM/DL Urine Color ORANGE Urine Clarity CLEAR Urine pH 6.0 5-9 Urine Specific [place] 1.020 1.016-1.022 Urine Protein 1+ H NEGATIVE Urine Glucose (UA) NEGATIVE NEGATIVE Urine Ketones TRACE H NEGATIVE Urine Nitrite POSITIVE H NEGATIVE Urine Bilirubin N NEGATIVE Urine Urobilinogen 0.2 < = 1.0 MG/DL Urine Leukocyte Esterase 1+ H NEGATIVE Urine RBC (Auto) TRACE-I H NEGATIVE Urine RBC RARE /HPF Urine WBC 50-100 H /HPF Urine Squamous Epithelial Cells 10-25 H /HPF Urine Crystals NONE /LPF Urine Bacteria LARGE H /HPF Urine Casts NONE /LPF Urine Mucus LARGE H /LPF Urine Culture Indicated YES (VANNESA ALBERT DO) Vital Signs/I&O 08/25/22 08/25/22 16:00 18:52 Temp 36.8 36.9 Pulse 109 101 Resp 24 20 B/P (MAP) 168/74 (105) 150/75 Pulse Ox 96 94 O2 Delivery Room Air Room Air (VANNESA ALBERT DO) Vital Signs/I&O Capillary Refill : (ISAMAR MENARD) Blood Pressure Mean: 105 ECG Comment Sinus tachycardia with first-degree AV block, 109 bpm, QRS duration 87 MS, QTc 394 MS. (ISAMAR MENARD) Departure Communication (PCP) Reviewed previous ER visits, H&P's, cardiac work-up, testing. History of COPD. She does not wear oxygen at home. Patient has been out of her Advair and albuterol for the past month. Shortness of breath and cough over the past week worse over the past 3 days. No chest pain abdominal pain but she does report some flulike symptoms. She reports increased leg swelling. January 2020 ech ocardiogram performed showed ejection fraction 55 to 65%. Due to her current complaints CBC, CMP, troponin, BNP, chest x-ray, cardiac work-up was initiated. Patient EKG showed a sinus tachycardia with first-degree AV block. She did have some notable inspiratory and expiratory wheezing bilateral. Oxygen 96% on room air. She was slightly tachycardic. Patient coughing up sputum. She states coughing did improve the breathing. She was given DuoNeb breathing treatment with improvement of wheezing. She was given IV Solu-Medrol 125 mg. Patient CBC showed normal white blood count. Chemistry showed potassium 3.4, magnesium 1.5. Oral supplementation provided here (20 meq K, and 400mg Mag). Normal troponin and BNP. Chest x-ray negative for pneumonia, pneumothorax, cardiomegaly, pleural effusion. She did have some notable swelling bilateral lower extremity without any pain on palpation. Equal pulses dorsalis pedis +2 bilateral. No ischemic limb or evidence of DVT. Patient COVID influenza was negative. She reports urinary symptoms. Urinalysis concern for UTI. Patient was given a liter of fluid and a gram of Rocephin. She was given a second breathing treatment as she continued to have some mild wheezing. Continue improvement of her oxygen level as high as 98%. Walking oxygen 94% on room air. No vomiting or diarrhea. She states she feels much better at this time would like be discharged in a refill of her medication. We will prescribe prednisone and cefdinir for urinary tract infection. This appears to be more COPD exacerbation at this time. Continue monitoring symptoms at home. Follow-up your PCP in 3 to 4 days for reevaluation of today's visit and urinalysis. (ISAMAR MENARD) Impression Primary Impression: COPD (chronic obstructive pulmonary disease) Disposition: HOME, SELF-CARE Condition: Stable Departure-Patient Inst. Decision time for Depature: 18:27 (ISAMAR MENARD) Referrals: REGGIE WHITE MD (PCP/Family) Primary Care Physician Patient Instructions: Chronic Obstructive Pulmonary Disease (COPD) (DC) Scripts Cefdinir (Cefdinir) 300 Mg Capsule 300 MG PO BID for 7 Days, #14 CAP Prov: ISAMAR MENARD 08/25/22 Fluticasone/Salmeterol (Advair Hfa 115-21 Mcg Inhaler) 115 Mcg-21 Mcg/Actuation Hfa.aer.ad 12 GM IH BID, #1 GM Prov: ISAMAR MENARD 08/25/22 Albuterol Sulfate (VENTOLIN HFA) 1 Puff Puff 2 PUFF INH Q4H, #1 EA 1 PUFF = 90 MCG Prov: ISAMAR MENARD 08/25/22 Prednisone (Prednisone) 50 Mg Tab 50 MG PO DAILY for 4 Days, #4 TAB Prov: ISAMAR MENARD 08/25/22 ATTENDING PHYSICIAN NOTE: I WAS PHYSICALLY PRESENT ER PHYSICIAN, BUT I WAS NOT INVOLVED IN ANY DECISION MAKING OR ANY CARE OF THIS PATIENT, AND I AM NOT COLLABORATING PHYSICIAN. (VANNESA ALBERT DO) ISAMAR MENARD Aug 25, 2022 16:09 VANNESA ALBERT DO Aug 26, 2022 06:37
[2022-08-25 16:15] LABS: BASOPHILS % (AUTO) 0 % (0-10); EOSINOPHILS # (AUTO) 0.1 10^3/uL (0.0-0.3); EOSINOPHILS % (AUTO) 1 % (0-10); HEMATOCRIT 47 % (35-52); HEMOGLOBIN 15.1 g/dL (11.5-16.0); LYMPHOCYTES # (AUTO) 1.5 X 10^3 (1.0-4.0); LYMPHOCYTES % (AUTO) 27 % (12-44); MEAN CORPUSCULAR HEMOGLOBIN 31 pg (25-34); MEAN CORPUSCULAR HGB CONC 32 g/dL (32-36); MEAN CORPUSCULAR VOLUME 97 fL (80-99); MEAN PLATELET VOLUME 8.3 fL (9.0-12.2); MONOCYTES # (AUTO) 0.3 X 10^3 (0.0-1.0); MONOCYTES % (AUTO) 5 % (0-12); NEUTROPHILS # (AUTO) 3.7 X 10^3 (1.8-7.8); NEUTROPHILS % (AUTO) 67 % (42-75); PLATELET COUNT 284 10^3/uL (130-400); WHITE BLOOD COUNT 5.6 10^3/uL (4.3-11.0)
[2022-08-25] MEDS ORDERED: methylPREDNISolone 125 MG (Solu-MEDROL) VIAL IVP ONE (16:15)
[2022-08-25] MEDS ORDERED: RT-ALBUTEROL/IPRATROPIUM 3 ML (DUONEB) VIAL INH ONE (16:15)
[2022-08-25 16:22] LABS: ALBUMIN 3.8 GM/DL (3.2-4.5)
[2022-08-25 16:23] LABS: POTASSIUM 3.4 MMOL/L (3.6-5.0)
[2022-08-25 16:24] LABS: CALCIUM 10.1 MG/DL (8.5-10.1)
[2022-08-25 16:25] LABS: TOTAL PROTEIN 7.4 GM/DL (6.4-8.2)
[2022-08-25 16:27] LABS: BILIRUBIN,TOTAL 0.6 MG/DL (0.1-1.0)
[2022-08-25 16:29] LABS: CREATININE SERUM 0.92 MG/DL (0.60-1.30)
[2022-08-25 16:32] LABS: CLARITY,URINE CLEAR; COLOR,URINE ORANGE; GLUCOSE, URINE (UA) NEGATIVE (NEGATIVE); KETONES,URINE TRACE (NEGATIVE); LEUKOCYTE ESTERASE ,URINE 1+ (NEGATIVE); NITRITE,URINE POSITIVE (NEGATIVE); PROTEIN,URINE 1+ (NEGATIVE)
[2022-08-25 16:32] LABS: MAGNESIUM 1.5 MG/DL (1.6-2.4)
[2022-08-25 16:34] LABS: INR 0.9 (0.8-1.4); PROTHROMBIN TIME PATIENT 12.9 SEC (12.2-14.7)
--- NOTE | 2022-08-25 16:45 | Diagnostic Imaging Report ---
PATIENT HISTORY: Chest pain. TECHNIQUE: Single frontal view of the chest. COMPARISON: 02/04/2020. FINDINGS: The lung volumes are normal. No focal consolidation is seen. No large pleural effusion or pneumothorax is seen. The cardiomediastinal silhouette is normal in size and contour. No acute osseous abnormality is seen. IMPRESSION: No acute pulmonary abnormality seen. Dictated by: Dictated on workstation # [id number]
[2022-08-25 16:47] LABS: BILIRUBIN,URINE N (NEGATIVE)
[2022-08-25 16:48] LABS: BACTERIA,URINE LARGE /HPF; RBC,URINE RARE /HPF; WBC,URINE 50-100 /HPF
[2022-08-25] MEDS ORDERED: NS IV 1000 ML 1,000 ML IV STA (16:50)
[2022-08-25] MEDS ORDERED: cefTRIAXone 1 GM PRE-MIX 50 ML IV STA (16:50)
[2022-08-25] MEDS ORDERED: KCL 20 MEQ TAB (K-DUR) PO ONE (17:00)
[2022-08-25] MEDS ORDERED: MAGNESIUM OXIDE (MAG-OX)400 MG TAB PO ONE (18:15)
[2022-08-25] MEDS ORDERED: RT-ALBUTEROL SULF 2.5 MG/3 ML PRE-MIX VIAL INH ONE (18:15)
[2022-08-25] MEDS ORDERED: FLUT12AE4 IH ×2 (18:30→18:55)
[2022-08-25] MEDS ORDERED: CEFD300C3 PO ×2 (18:32→18:55)
[2022-08-25] MEDS ORDERED: PRD50T PO ×2 (18:32→18:55)
[2022-08-25] MEDS ORDERED: RT-ALBUINH INH ×2 (18:32→18:55)
[2022-08-25 18:52] VITALS: BP 150/75
== END 2022-08-25 18:52 | disposition home or self-care (01) ==
LOC: EDUNIT# 15:52 → ER 15:55
DX: J44.9 Chronic obstructive pulmonary disease, unspecified (principal); I44.0 Atrioventricular block, first degree; Z20.822 Contact with and (suspected) exposure to COVID-19
CPT/HCPCS: 36415; 71045; 80053; 81000; 83735; 83880; 84484; 85025; 85610; 85730; 87077; 87088; 87186; 87636; 93005; 93041